=== PATIENT | male | born 1940 | race Caucasian/White ===

== ENCOUNTER 2016-11-29 16:37 | Emergency (ER) | payer BC, MEDICARE, OTHER ==
[2016-11-29 16:54] VITALS: TEMP 97.9
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
[2016-11-29 18:02] VITALS: BP 142/78; PULSE 78; RESP 16
== END 2016-11-29 18:10 | disposition home or self-care (01) ==
LOC: EC 16:37
DX: S01.81XA Laceration without foreign body of other part of head, initial encounter (principal); Z79.82 Long term (current) use of aspirin; Z79.899 Other long term (current) drug therapy; V43.52XA Car driver injured in collision with other type car in traffic accident, initial encounter; Y92.410 Unspecified street and highway as the place of occurrence of the external cause
CPT/HCPCS: 70450; 72125; 72170; 99284

== ENCOUNTER 2017-01-09 11:23 | Day surgery (SDC) | payer MEDICARE, BC ==
[2017-01-07 15:26] VITALS: BMI 25.0
[~2017-01-09 11:23] MED LIST: HEPARIN SODIUM,PORCINE 5,000 UNIT/ML 1 ML VIAL SQ ONE; MIDAZOLAM 2 MG/2 ML VIAL IV PRN; ONDANSETRON 4 MG/2 ML VIAL IVP ONE; ceFAZolin 2 GM in SODIUM CHLORIDE 0.9% 100 ML IVPB ONE
[2017-01-09] MEDS: LACTATED RINGERS 1,000 ML IV SCH (12:11)
--- NOTE | 2017-01-09 13:01 | P.GSHP ---
History of Present Illness H&P Date: 01/09/17 Chief Complaint: Left inguinal hernia This is a 68-year-old male who presents today for laparoscopic robotic-assisted repair of left inguinal hernia. Past Medical History Past Medical History: CVA/TIA, Hyperlipidemia, Hypertension, Osteoarthritis (OA) Additional Past Medical History / Comment(s): Speech slurred from CVA. History of Any Multi-Drug Resistant Organisms: None Reported Past Surgical History: No Surgical Hx Reported Additional Past Surgical History / Comment(s): Colonoscopy Past Anesthesia/Blood Transfusion Reactions: No Reported Reaction Smoking Status: Never smoker - Past Family History Mother Family Medical History: Cancer, Hypertension Additional Family Medical History / Comment(s): Breast Cancer Medications and Allergies Home Medications Medication Instructions Recorded Confirmed Type Allopurinol [Zyloprim] 100 mg PO DAILY 11/29/16 01/09/17 History Aspirin [Adult Low Dose Aspirin EC] 81 mg PO DAILY 11/29/16 01/07/17 History Cholecalciferol [Vitamin D3] 1,000 unit PO DAILY 11/29/16 01/07/17 History Diclofenac Sodium [Voltaren] 75 mg PO DAILY 11/29/16 01/07/17 History Enalapril [Vasotec] 20 mg PO BID 11/29/16 01/09/17 History Ferrous Sulfate [Feosol] 325 mg PO DAILY 11/29/16 01/07/17 History Hydrochlorothiazide [Hydrodiuril] 50 mg PO DAILY 11/29/16 01/09/17 History Indomethacin 25 mg PO DAILY PRN 11/29/16 01/09/17 History Losartan Potassium [Cozaar] 50 mg PO BID 11/29/16 01/09/17 History Magnesium Oxide [Magox 400] 400 mg PO DAILY 11/29/16 01/07/17 History amLODIPine [Norvasc] 5 mg PO BID 11/29/16 01/09/17 History Allergies Allergy/AdvReac Type Severity Reaction Status Date / Time No Known Allergies Allergy Verified 01/09/17 12:03 Surgical - Exam Vital Signs Temp Pulse Resp BP Pulse Ox 98.9 F 86 16 134/90 98 01/09/17 11:53 01/09/17 11:53 01/09/17 11:53 01/09/17 11:53 01/09/17 11:53 - General well developed, no distress - Eyes PERRL - ENT normal pinna - Neck no masses - Respiratory normal expansion - Cardiovascular Rhythm: regular - Abdomen Reducible left inguinal hernia Abdomen: soft, non tender Assessment and Plan Plan: Left inguinal hernia. We'll perform laparoscopic robotic-assisted repair.
[2017-01-09] MEDS ORDERED: fentaNYL (PF) 50 MCG/ML 2 ML AMP ONE (13:32)
[2017-01-09] MEDS ORDERED: ROCURONIUM BROMIDE 10 MG/ML 10 ML VIAL IV ONE (13:32)
[2017-01-09] MEDS ORDERED: PHENYLEPHRINE-0.9% NACL SYG 1 MG/10 ML SYRINGE ONE (13:32)
[2017-01-09] MEDS ORDERED: PROPOFOL 10 MG/ML 20 ML VIAL IV ONE (13:32)
[2017-01-09] MEDS ORDERED: MIDAZOLAM 2 MG/2 ML VIAL ONE (13:32)
[2017-01-09] MEDS ORDERED: LIDOCAINE 1% INJ 10MG/ML (20 ML MDV) ONE (13:32)
[2017-01-09] MEDS ORDERED: SUCCINYLCHOLINE CHLORIDE 100 MG/5 ML SYR IV ONE (13:32)
[2017-01-09] MEDS ORDERED: GLYCOPYRROLATE 0.2 MG/ML 2 ML VIAL ONE (13:32)
[2017-01-09] MEDS ORDERED: NEOSTIGMINE 1 MG/ML 10 ML VIAL ONE (13:32)
[2017-01-09] MEDS ORDERED: KETOROLAC 30 MG/ML 1 ML VIAL ONE (13:32)
[2017-01-09] MEDS ORDERED: LIDOCAINE 1%-EPI 1:100,000 20 ML VIAL SQ ONE (14:05)
--- NOTE | 2017-01-09 14:36 | P.OP ---
Date of Procedure: 01/09/17 Preoperative Diagnosis: Left and inguinal hernia Postoperative Diagnosis: Bilateral inguinal hernia Procedure(s) Performed: Laparoscopic robotic-assisted repair of bilateral inguinal hernia Implants: Anesthesia: KYLEA Surgeon: Erwin Watson Estimated Blood Loss (ml): 5 Pathology: none sent Condition: stable Disposition: PACU Indications for Procedure: Operative Findings: Description of Procedure: The patient's placed on the operating table in the supine position. The patient received general anesthesia. The patient's abdomen was prepped and draped in usual sterile fashion. The skin was anesthetized 1% local Xylocaine at the incision sites. Using an 11 blade a skin incision was made at the umbilicus. The fascia was grasped with a Cashion and then the peritoneal cavity was entered with the Veress needle. Position of the Veress needle was confirmed with a positive drop test. After adequate insufflation a 5 mm trocar was placed into the peritoneal cavity. The Laparoscope was placed the peritoneal cavity. And a robotic 8 mm trocar was placed in the right lateral position and then another 8 mm robotic trochars placed in the left lateral position. The original 5 mm trocar was exchanged for a 12 mm trocar. The patient was placed in reverse Trendelenburg and then the patient was docked to the robot. Next the peritoneum over top of the left hernia was incised and then using blunt and sharp dissection and electrocautery the hernia sac was dissected free from the floor of the inguinal canal. The hernia sac was completely reduced into the peritoneal cavity. And then using the Pro grinder set up operator gear tool mesh the hernia was repaired. The peritoneum was then sutured with 20V lock suture. Next the right inguinal hernia was repaired in identical fashion The patient was then undocked the robot. The needle was withdrawn from the peritoneal cavity. The umbilical trocar site was closed with 0 Ethibond suture. The skin was closed interrupted 3-0 Monocryl suture. Dermabond dressing was applied. Patient was sent to recovery in stable condition.
[2017-01-09] MEDS ORDERED: LACTATED RINGERS 1,000 ML IV ONE (15:00)
[2017-01-09 15:04] VITALS: TEMP 97.4
[2017-01-09] MEDS: HYDROmorphone 1 MG/ML 1 ML SYRINGE IVP PRN ×2 (15:17→15:23)
[2017-01-09 15:46] VITALS: RESP 16
[2017-01-09] MEDS ORDERED: HYDROcodone/APAP 7.5-325MG 1 EACH TAB PO ONE (16:04)
[2017-01-09 16:11] VITALS: PULSE 70
[2017-01-09 16:30] VITALS: BP 114/55
== END 2017-01-09 17:34 | disposition home or self-care (01) ==
LOC: OR 11:23
PROVIDERS: ATTEND Surgery
DX: K40.20 Bilateral inguinal hernia, without obstruction or gangrene, not specified as recurrent (principal); E78.5 Hyperlipidemia, unspecified; I10 Essential (primary) hypertension; M19.90 Unspecified osteoarthritis, unspecified site; M10.9 Gout, unspecified; Z86.73 Personal history of transient ischemic attack (TIA), and cerebral infarction without residual deficits; Z79.82 Long term (current) use of aspirin; Z79.899 Other long term (current) drug therapy
CPT/HCPCS: 49650; C1781; J1644; J0690; J2405; J1170

== ENCOUNTER 2020-09-25 17:03 | Emergency (ER) | payer BC, MEDICARE ==
--- NOTE | 2020-09-25 18:12 | ED ---
General Adult HPI - General Chief complaint: Recheck/Abnormal Lab/Rx Stated complaint: COVID EXPOSURE Time Seen by Provider: 09/25/20 18:00 Source: patient Mode of arrival: wheelchair Limitations: no limitations - History of Present Illness Initial comments: Dictation was produced using Clone dictation software. please excuse any grammatical, word or spelling errors. This patient was cared for during a federal and state declared state of emergency secondary to Covid 19 Chief Complaint: 80-year-old male presents to the emergency department for covid 19 testing History of Present Illness: Patient is a 80-year-old male past medical history of stroke dyslipidemia hypertension. Patient states that a couple days ago he was exposed to family members that tested positive for Covid 19. Patient has any symptoms. He was urged to come here by his son who is also a physician. Son was spoken to over the phone. His name is Titi. He wants his parents to receive monoclonal antibodies if they meet criteria. The ROS documented in this emergency department record has been reviewed and confirmed by me. Those systems with pertinent positive or negative responses have been documented in the HPI. All other systems are other negative and/or noncontributory. PHYSICAL EXAM: General Impression: Alert and oriented x3, not in acute distress HEENT: Normocephalic atraumatic, extra-ocular movements intact, pupils equal and reactive to light bilaterally, mucous membranes moist. Cardiovascular: Heart regular rate and rhythm Chest: Able to complete full sentences, no retractions, no tachypnea Abdomen: abdomen soft, non-tender, non-distended, no organomegaly Musculoskeletal: Pulses present and equal in all extremities, no peripheral edema Motor: no focal deficits noted Neurological: CN II-XII grossly intact, no focal motor or sensory deficits noted Skin: Intact with no visualized rashes Psych: Normal affect and mood ED course: 80-year-old male with multiple comorbidities presents to emergency department for chief complaint of Covid 19 testing. Patient denies any symptoms or signs at this time. Son over the phone reports that patient has URI symptoms. Vital signs upon arrival are within acceptable limits. Chest x-ray shows infiltrates. covid 19 test is positive. Patient is not hypoxic. he meets criteria for monoclonal antibody infusion. Patient tolerated infusion he was observed with no issues for 1 hour after completion of infusion. Patient be discharged. Return parameters discussed. - Related Data Home Medications Medication Instructions Recorded Confirmed Allopurinol [Zyloprim] 100 mg PO DAILY 11/29/16 01/09/17 Aspirin [Adult Low Dose Aspirin EC] 81 mg PO DAILY 11/29/16 01/07/17 Cholecalciferol [Vitamin D3] 1,000 unit PO DAILY 11/29/16 01/07/17 Diclofenac Sodium [Voltaren] 75 mg PO DAILY 11/29/16 01/07/17 Enalapril [Vasotec] 20 mg PO BID 11/29/16 01/09/17 Ferrous Sulfate [Feosol] 325 mg PO DAILY 11/29/16 01/07/17 Indomethacin 25 mg PO DAILY PRN 11/29/16 01/09/17 Losartan Potassium [Cozaar] 50 mg PO BID 11/29/16 01/09/17 Magnesium Oxide [Magox 400] 400 mg PO DAILY 11/29/16 01/07/17 amLODIPine [Norvasc] 5 mg PO BID 11/29/16 01/09/17 hydroCHLOROthiazide [Hydrodiuril] 50 mg PO DAILY 11/29/16 01/09/17 Previous Rx's Medication Instructions Recorded Docusate [Colace] 100 mg PO BID #20 capsule 01/09/17 HYDROcodone/APAP 7.5-325MG [[place] 1 each PO Q4H PRN #60 tab 01/09/17 7.5] Allergies Allergy/AdvReac Type Severity Reaction Status Date / Time No Known Allergies Allergy Verified 09/25/20 17:25 Review of Systems ROS Statement: Those systems with pertinent positive or pertinent negative responses have been documented in the HPI. ROS Other: All systems not noted in ROS Statement are negative. Past Medical History Past Medical History: CVA/TIA, Hyperlipidemia, Hypertension, Osteoarthritis (OA) Additional Past Medical History / Comment(s): Speech slurred from CVA. History of Any Multi-Drug Resistant Organisms: None Reported Past Surgical History: No Surgical Hx Reported Additional Past Surgical History / Comment(s): Colonoscopy Past Anesthesia/Blood Transfusion Reactions: No Reported Reaction Past Psychological History: No Psychological Hx Reported Past Alcohol Use History: Occasional Past Drug Use History: None Reported - Past Family History Mother Family Medical History: Cancer, Hypertension Additional Family Medical History / Comment(s): Breast Cancer General Exam Limitations: no limitations Course Vital Signs 09/25/20 09/25/20 09/25/20 17:23 18:26 20:38 Temperature 98.0 F 98.3 F Pulse Rate 66 64 Respiratory 18 16 16 Rate Blood Pressure 152/81 117/75 O2 Sat by Pulse 99 97 Oximetry 09/25/20 21:49 Temperature Pulse Rate 71 Respiratory 16 Rate Blood Pressure 127/66 O2 Sat by Pulse 98 Oximetry Medical Decision Making - Lab Data Lab Results 09/25/20 Range/Units 18:08 Coronavirus (PCR) Detected A (Not Detectd) Disposition Clinical Impression: COVID-19 Disposition: HOME SELF-CARE Condition: Good Instructions (If sedation given, give patient instructions): Viral Pneumonia (ED) Additional Instructions: Today you were evaluated for symptoms consistent with upper respiratory infection. Today you tested positive for Covid 19. Your are stable for discharge, however it is instructed to to seek immediate medical attention especially if you develop worsening symptoms especially respiratory distress. If possible, try to obtain a pulse oximeter and monitor your oxygen at home. In the meantime please remain in quarantine for 14 days. For any other questions please contact Yoly for here in emergency department or [facility] at [phone] Is patient prescribed a controlled substance at d/c from ED?: No Referrals: David Ortega MD [Primary Care Provider] - 1-2 days Time of Disposition: 21:55
--- NOTE | 2020-09-25 18:18 | XR ---
EXAMINATION TYPE: XR chest 2V DATE OF EXAM: 09/25/2020 COMPARISON: NONE HISTORY: Cough. TECHNIQUE: Frontal and lateral views of the chest are obtained. FINDINGS: There is no focal air space opacity, pleural effusion, or pneumothorax seen. The cardiac silhouette size is within normal limits. The osseous structures are intact. IMPRESSION: No acute cardiopulmonary process.
[2020-09-25 18:28] VITALS: RESP 16
[2020-09-25] MEDS ORDERED: BAMLANIVIMAB 700 MG in SODIUM CHLORIDE 0.9% 50 ML IVPB ONE (20:15)
[2020-09-25 20:40] VITALS: TEMP 98.3
[2020-09-25 21:51] VITALS: BP 127/66; PULSE 71
== END 2020-09-25 22:00 | disposition home or self-care (01) ==
LOC: EC 17:03
DX: U07.1 COVID-19 (principal); E78.5 Hyperlipidemia, unspecified; I10 Essential (primary) hypertension; M19.90 Unspecified osteoarthritis, unspecified site; Z86.73 Personal history of transient ischemic attack (TIA), and cerebral infarction without residual deficits
CPT/HCPCS: 87635; 71046; 99283; Q0239

== ENCOUNTER → 2022-09-26 | Outpatient (CLI) | payer MEDICARE ==
[2022-09-26 11:55] VITALS: BP 119/75; PULSE 53; RESP 18; TEMP 98.3
== END ==
LOC: PNWHC3 09:58
PROVIDERS: ATTEND Specialist
DX: M79.2 Neuralgia and neuritis, unspecified (principal); G06.2 Extradural and subdural abscess, unspecified
CPT/HCPCS: 99211

== ENCOUNTER 2022-10-23 09:12 | Day surgery (SDC) | payer MEDICARE ==
[2022-10-17 15:58] VITALS: BMI 25.8
[~2022-10-23 09:12] MED LIST changes: -HEPARIN SODIUM,PORCINE 5,000 UNIT/ML 1 ML VIAL SQ ONE; +LACTATED RINGERS 1,000 ML IV SCH; +LIDOCAINE 1% (10MG/ML) FOR IV START INTRADERMA PRN; -MIDAZOLAM 2 MG/2 ML VIAL IV PRN; -ONDANSETRON 4 MG/2 ML VIAL IVP ONE; -ceFAZolin 2 GM in SODIUM CHLORIDE 0.9% 100 ML IVPB ONE
[2022-10-23 09:43] VITALS: RESP 16; TEMP 97.3
[2022-10-23] MEDS ORDERED: methylPREDNISolone ACETATE 40 MG/ML 1 ML VIAL ONE (09:49)
[2022-10-23] MEDS ORDERED: MIDAZOLAM 2 MG/2 ML VIAL ONE (09:49)
[2022-10-23] MEDS ORDERED: IOPAMIDOL M200 10 ML VIAL ONE (09:49)
[2022-10-23] MEDS ORDERED: fentaNYL (PF) 50 MCG/ML 2 ML AMP ONE (09:49)
--- NOTE | 2022-10-23 10:02 | P.PCN ---
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 3-lumbar spinal stenosis POSTOPERATIVE DIAGNOSIS: 1-lumbar degenerative disc disease. 2-lumbar spondylosis with facet arthropathy without myelopathy. 3-lumbar spinal stenosis. PROCEDURE 1. Lumbar epidural steroid injection under fluoroscopic guidance at the L5-S1 level. (Fluoroscopy imaging was available in radiology department) 2. Lumbar epidurogram. ANESTHESIA: moderate sedation with intravenous Versed 1 mg ,and fentanyle 50 Mcg Sedation start time : 953 Sedation end time : 1000 EBL: Minimal PROCEDURE INDICATION: The patient with low back pain and radiculitis symptoms unresponsive to conservative treatment. Fluoroscopy was used to optimize visualization of the needle placement and to maximize safety. PROCEDURE DESCRIPTION / TECHNIQUE: The patient was seen and identified in the preoperative area. Risks, benefits, complications including but not limited to infections ,bleeding ,allergic reaction to the medications ,nerve damage and not complete pain releife , and alternatives were discussed with the patient. The patient agreed to proceed with the procedure and signed the consent. IV was started, and vital signs were stable. Patient was taken to the OR and time out was completed. The patient was placed in the prone position on procedure table and a pillow was placed under the abdomen to reduce lumbar lordosis. The lumbosacral area was prepped and draped in the usual sterile fashion.ere closely monitored during the procedure. C onscious sedation was used during the procedure to decrease patients anxiety. Vital signs was monitered during the entire procedure. Using anterior-posterior fluoroscopy, the L5-S1 interlaminar space was identified and the skin over this site was marked and then infiltrated with 1% lidocaine subcutaneously. Subsequently, a 20-gauge Tuohy epidural needle was inserted and advanced toward the epidural space using the ``Loss of resistance technique and guided by AP and lateral fluoroscopy. The correct needle position in the epidural space was verified with the injection of 2 mL of the water solu ble contrast dye Isovue 200 contrast and observing an excellent epidurogram with the epidural spread of the dye, after negative aspiration for blood and CSF and in the absence of paresthesias. Again after negative aspiration, a 6 ml mixture containing 40 mg of Depo-medrol ( Preservetive Free ), and 2 ml of preservative free Normal Saline, and 2 ml of preservative free lidocaine 1% solution was injected and a washout of epidurogram was seen. Needle was withdrawn intact, skin was cleansed, and bandages were applied. COMPLICATIONS: None DISPOSITION / PLANS: The patient was placed in a supine position and transferred to the recovery area in a stable condition for observation. There was no evidence of lower extremity motor or sensory deficit after the procedure. Patient was discharged from the recovery room after meeting discharge criteria. Home discharge instructions were given to the patient by the staff. The patient was reexamined prior to discharge. The patient will schedule a follow up in the clinic in 2-4 weeks.
[2022-10-23] MEDS ORDERED: IV FLUID CONTINUATION 1,000 ML IV ONE (10:05)
[2022-10-23 10:20] VITALS: BP 139/79; PULSE 81
[2022-10-23] MEDS ORDERED: IBUPROFEN 600 MG TAB PO ONE (10:35)
--- NOTE | 2022-10-23 11:33 | FL ---
EXAMINATION TYPE: FL guided pain mgmt statistic DATE OF EXAM: 10/23/2022 FLUOROSCOPY Fluoroscopy time of 2 seconds was used during lumbar epidural steroid injection. 1 image/s document/ s the procedure. 0.70197 total DAP.
== END 2022-10-23 10:51 | disposition home or self-care (01) ==
LOC: ORPAIN 09:12
PROVIDERS: ATTEND Specialist
DX: M51.16 Intervertebral disc disorders with radiculopathy, lumbar region (principal); M47.26 Other spondylosis with radiculopathy, lumbar region; M48.061 Spinal stenosis, lumbar region without neurogenic claudication
CPT/HCPCS: 62323; J2250; J1030; J3010; Q9966

== ENCOUNTER 2022-10-30 10:13 | Observation (INO) | payer MEDICARE ==
--- NOTE | 2022-10-30 11:45 | ED ---
General Adult HPI - General Chief complaint: Abdominal Pain Stated complaint: Abd pain Time Seen by Provider: 10/30/22 11:45 Source: patient Mode of arrival: ambulatory Limitations: no limitations - History of Present Illness Initial comments: 82-year-old male presents to the emergency department with just not feeling right for the last month. He is complaining of accompanying symptoms of nausea and vomiting. He denies any abdominal pain. He reports that he has had worsening low back pain for which he has received injections for. His last injection was approximately 1 month ago. He denies any recent known sick contacts. He is Covid and influenza vaccinated. He denies any fevers, chills, chest pain, shortness of breath, abdominal pain, flank pain, dysuria, hematuria. - Related Data Home Medications Medication Instructions Recorded Confirmed Aspirin [Adult Low Dose Aspirin EC] 81 mg PO DAILY 11/29/16 10/30/22 Magnesium Oxide [Magox 400] 400 mg PO DAILY 11/29/16 10/30/22 allopurinoL [Zyloprim] 100 mg PO DAILY 11/29/16 10/30/22 Finasteride [Proscar] 5 mg PO DAILY 10/17/22 10/30/22 Furosemide [Lasix] 20 mg PO DAILY 10/17/22 10/30/22 Ibuprofen [Advil] 200 - 400 mg PO Q6HR PRN 10/17/22 10/30/22 Levothyroxine Sodium [Synthroid] 75 mcg PO DAILY 10/17/22 10/30/22 Lovastatin [Mevacor] 20 mg PO DAILY 10/17/22 10/30/22 hydrALAZINE HCL [Apresoline] 50 mg PO BID 10/17/22 10/30/22 tiZANidine HCL [Zanaflex] 2 mg PO AC-BID PRN 10/17/22 10/30/22 Losartan Potassium 100 mg PO BID 10/30/22 10/30/22 Ondansetron [Zofran] 4 mg PO QID 10/30/22 10/30/22 Scopolamine [Scopolamine 1 MG/72 1 patch TRANSDERM Q72H 10/30/22 10/30/22 HR patch] amLODIPine [Norvasc] 10 mg PO DAILY 10/30/22 10/30/22 Allergies Allergy/AdvReac Type Severity Reaction Status Date / Time No Known Allergies Allergy Verified 10/30/22 16:41 Review of Systems ROS Statement: Those systems with pertinent positive or pertinent negative responses have been documented in the HPI. ROS Other: All systems not noted in ROS Statement are negative. Past Medical History Past Medical History: CVA/TIA, Hyperlipidemia, Hypertension, Osteoarthritis (OA) Additional Past Medical History / Comment(s): chronic pain lower back,CVA yrs ago History of Any Multi-Drug Resistant Organisms: None Reported Past Surgical History: Hernia Repair Additional Past Surgical History / Comment(s): Colonoscopy Past Anesthesia/Blood Transfusion Reactions: No Reported Reaction Past Psychological History: No Psychological Hx Reported Smoking Status: Never smoker Past Alcohol Use History: None Reported Past Drug Use History: None Reported - Past Family History Mother Family Medical History: Cancer, Hypertension Additional Family Medical History / Comment(s): Breast Cancer General Exam - General Exam Comments Initial Comments: Visual Physical Exam Vital signs reviewed General: Well-appearing, nontoxic, no acute distress. Head: Normocephalic, atraumatic Eyes: PERRLA, EOMI ENT: Airway patent Chest: Nonlabored breathing Skin: No visual rash, normal skin tone Neuro: Alert and oriented 3 Musculoskeletal: No gross abnormalities General: Alert, in no acute distress Head: atraumatic normocephalic. Eyes PERRL, EOMI intact, mucous membranes moist Respiratory: Lungs clear to auscultation bilaterally Cardiovascular: Heart rate regular rate and rhythm Abdominal: Soft without guarding or rebound Extremities: Normal inspection with full range of motion and normal capillary refill Neuroogic: alert and oriented 3, CN II-XII intact, able to ambulate with steady gait Skin: warm dry and intact with normal color Limitations: no limitations Course Vital Signs 10/30/22 10/30/22 10/30/22 10:41 14:34 17:12 Temperature 98.3 F 97.9 F 97.9 F Pulse Rate 71 76 67 Respiratory 22 16 16 Rate Blood Pressure 119/76 142/75 138/74 O2 Sat by Pulse 100 96 97 Oximetry 10/30/22 18:48 Temperature 98 F Pulse Rate 71 Respiratory 16 Rate Blood Pressure 137/84 O2 Sat by Pulse 98 Oximetry - Reevaluation(s) Reevaluation #2: 10/30/22 16:09 patient reevaluated. Patient still unable to tolerate by mouth challenge. Patient is agreeable with the plan for admission. Dr. Ortega paged. Reevaluation #3: 10/30/22 17:[address] Ortega who agrees and accepts the patient for admission Medical Decision Making - Medical Decision Making Was pt. sent in by a medical professional or institution ([facility], HOSPITAL INTERN, urgent care, hospital, or [facility]...) When possible be specific @ -[No] Did you speak to anyone other than the patient for history (EMS, parent, family, police, friend...)? What history was obtained from this source @ -[No] Did you review nursing and triage notes (agree or disagree)? Why? @ -[I reviewed and agree with nursing and triage notes] Were old charts reviewed (outside hosp., previous admission, EMS record, old EKG, old radiological studies, urgent care reports/EKG's, [facility] records)? Report findings @ -[No old charts were reviewed] Differential Diagnosis (chest pain, altered mental status, abdominal pain women, abdominal pain men, vaginal bleeding, weakness, fever, dyspnea, syncope, headache, dizziness, GI bleed, back pain, seizure, CVA, palpatations, mental health, musculoskeletal)? @ -[not applicable] EKG interpreted by me (3pts min.). @ -[As above] X-rays interpreted by me (1pt min.). @ -[None done] CT interpreted by me (1pt min.). @ -[None done] U/S interpreted by me (1pt. min.). @ -[None done] What testing was considered but not performed or refused? (CT, X-rays, U/S, labs)? Why? @ -[None] What meds were considered but not given or refused? Why? @ -[None] Did you discuss the management of the patient with other professionals (professionals i.e. , [facility], HOSPITAL INTERN, lab, RT, psych nurse, secondary social studies teacher, dry cleaning teacher, teacher, boating safety officer, bilingual case manager)? Give summary @ -[No] Was smoking cessation discussed for >3mins.? @ -[No] Was critical care preformed (if so, how long)? @ -[No] Were there social determinants of health that impacted care today? How? (Homelessness, low income, unemployed, alcoholism, drug addiction, transportation, low edu. Level, literacy, decrease access to med. care, fpc, rehab)? @ -[No] Was there de-escalation of care discussed even if they declined (Discuss DNR or withdrawal of care, Hospice)? DNR status @ -[No] What co-morbidities impacted this encounter? (DM, HTN, Smoking, COPD, CAD, Cancer, CVA, ARF, Chemo, Hep., AIDS, mental health diagnosis, sleep apnea, morbid obesity)? @ -[None] Was patient admitted / discharged? Hospital course, mention meds given and route, prescriptions, significant lab abnormalities, going to OR and other pertinent info. @ -Admission. This is a 82 year-old male who presents the emergency department with nausea and vomiting. Patient had a thorough history and physical exam performed. Physical exam is essentially unremarkable heart rate regular rate and rhythm, lungs clear to auscultation bilaterally abdomen is soft and nontender. Patient able to ambukate with a steady gait. Patient lab work and imaging performed which is essentially unremarkable. Patient was given Toradol, zofran, compazine, 1L IV with symptomatic relief. Patient had a by mouth challenge for which she was unable to tolerate appleauce. Case discussed with Dr. Scott who agrees and accepts the patient for observation. I discussed the results in detail with the patient verbalized understanding and all questions were addressed Case discussed with Dr. Poe, [facility] who agrees with plan of care Undiagnosed new problem with uncertain prognosis? @ -[No] Drug Therapy requiring intensive monitoring for toxicity (Heparin, Nitro, Insulin, Cardizem)? @ -[No] Were any procedures done? @ -[No] Diagnosis/symptom? @ -nausea and vomiting - DEVIN Acute, or Chronic, or Acute on Chronic? @ -acute Uncomplicated (without systemic symptoms) or Complicated (systemic symptoms)? @ -[default] Side effects of treatment? @ -[No] Exacerbation, Progression, or Severe Exacerbation? @ -[No] Poses a threat to life or bodily function? How? (Chest pain, [place], [place], pneumonia, PE, COPD, DKA, ARF, appy, cholecystitis, CVA, Diverticulitis, Homicidal, Suicidal, threat to staff... and all critical care pts) @ -moderate likelihood - Lab Data Result diagrams: 10/30/22 12:03 10/30/22 12:03 Lab Results 10/30/22 10/30/22 10/30/22 Range/Units 12:03 12:03 12:03 WBC 11.9 H (3.8-10.6) k/uL RBC 5.47 (4.30-5.90) m/uL Hgb 15.9 (13.0-17.5) gm/dL Hct 47.8 (39.0-53.0) % MCV 87.5 (80.0-100.0) fL MCH 29.0 (25.0-35.0) pg MCHC 33.2 (31.0-37.0) g/dL RDW 13.6 (11.5-15.5) % Plt Count 292 (150-450) k/uL MPV 7.9 Neutrophils % 80 % Lymphocytes % 13 % Monocytes % 5 % Eosinophils % 0 % Basophils % 0 % Neutrophils # 9.5 H (1.3-7.7) k/uL Lymphocytes # 1.6 (1.0-4.8) k/uL Monocytes # 0.6 (0-1.0) k/uL Eosinophils # 0.1 (0-0.7) k/uL Basophils # 0.0 (0-0.2) k/uL PT 10.6 (9.0-12.0) sec INR 1.0 (<1.2) APTT 23.3 (22.0-30.0) sec Sodium 138 (137-145) mmol/L Potassium 4.4 (3.5-5.1) mmol/L Chloride 100 (98-107) mmol/L Carbon Dioxide 25 (22-30) mmol/L Anion Gap 13 mmol/L BUN 29 H (9-20) mg/dL Creatinine 1.76 H (0.66-1.25) mg/dL Est GFR (CKD-EPI)AfAm 40 (>60 ml/min/1.73 sqM) Est GFR (CKD-EPI)NonAf 35 (>60 ml/min/1.73 sqM) Glucose 94 (74-99) mg/dL Calcium 9.9 (8.4-10.2) mg/dL Total Bilirubin 0.8 (0.2-1.3) mg/dL AST 21 (17-59) U/L ALT 22 (4-49) U/L Alkaline Phosphatase 119 (38-126) U/L Troponin I (0.000-0.034) ng/mL Total Protein 7.4 (6.3-8.2) g/dL Albumin 4.5 (3.5-5.0) g/dL Urine Color Urine Appearance (Clear) Urine pH (5.0-8.0) Ur Specific Standish (1.001-1.035) Urine Protein (Negative) Urine Glucose (UA) (Negative) Urine Ketones (Negative) Urine Blood (Negative) Urine Nitrite (Negative) Urine Bilirubin (Negative) Urine Urobilinogen (<2.0) mg/dL Ur Leukocyte Esterase (Negative) Influenza Type A (PCR) (Not Detectd) Influenza Type B (PCR) (Not Detectd) RSV (PCR) (Not Detectd) SARS-CoV-2 (PCR) (Not Detectd) 10/30/22 10/30/22 10/30/22 Range/Units 12:03 12:03 15:55 WBC (3.8-10.6) k/uL RBC (4.30-5.90) m/uL Hgb (13.0-17.5) gm/dL Hct (39.0-53.0) % MCV (80.0-100.0) fL MCH (25.0-35.0) pg MCHC (31.0-37.0) g/dL RDW (11.5-15.5) % Plt Count (150-450) k/uL MPV Neutrophils % % Lymphocytes % % Monocytes % % Eosinophils % % Basophils % % Neutrophils # (1.3-7.7) k/uL Lymphocytes # (1.0-4.8) k/uL Monocytes # (0-1.0) k/uL Eosinophils # (0-0.7) k/uL Basophils # (0-0.2) k/uL PT (9.0-12.0) sec INR (<1.2) APTT (22.0-30.0) sec Sodium (137-145) mmol/L Potassium (3.5-5.1) mmol/L Chloride (98-107) mmol/L Carbon Dioxide (22-30) mmol/L Anion Gap mmol/L BUN (9-20) mg/dL Creatinine (0.66-1.25) mg/dL Est GFR (CKD-EPI)AfAm (>60 ml/min/1.73 sqM) Est GFR (CKD-EPI)NonAf (>60 ml/min/1.73 sqM) Glucose (74-99) mg/dL Calcium (8.4-10.2) mg/dL Total Bilirubin (0.2-1.3) mg/dL AST (17-59) U/L ALT (4-49) U/L Alkaline Phosphatase (38-126) U/L Troponin I <0.012 (0.000-0.034) ng/mL Total Protein (6.3-8.2) g/dL Albumin (3.5-5.0) g/dL Urine Color Yellow Urine Appearance Clear (Clear) Urine pH 5.5 (5.0-8.0) Ur Specific Standish 1.016 (1.001-1.035) Urine Protein Negative (Negative) Urine Glucose (UA) Negative (Negative) Urine Ketones 1+ H (Negative) Urine Blood Negative (Negative) Urine Nitrite Negative (Negative) Urine Bilirubin Negative (Negative) Urine Urobilinogen <2.0 (<2.0) mg/dL Ur Leukocyte Esterase Negative (Negative) Influenza Type A (PCR) Not Detected (Not Detectd) Influenza Type B (PCR) Not Detected (Not Detectd) RSV (PCR) Not Detected (Not Detectd) SARS-CoV-2 (PCR) Not Detected (Not Detectd) Disposition Clinical Impression: Intractable nausea and vomiting, DEVIN (acute kidney injury) Disposition: ADMITTED IP TO THIS HOSP Condition: Fair Time of Disposition: 17:06
[2022-10-30] MEDS ORDERED: ONDANSETRON 4 MG/2 ML VIAL IVP STA (12:26)
[2022-10-30] MEDS ORDERED: SODIUM CHLORIDE 0.9% 500 ML 500 ML IV ONE ×2 (12:26→14:20)
[2022-10-30] MEDS ORDERED: KETOROLAC 15 MG/ML 1 ML VIAL IVP STA (12:26)
[2022-10-30 12:29] LABS: Albumin 4.5 g/dL (3.5-5.0); Calcium 9.9 mg/dL (8.4-10.2); Potassium 4.4 mmol/L (3.5-5.1); Total Bilirubin 0.8 mg/dL (0.2-1.3); Total Protein 7.4 g/dL (6.3-8.2)
[2022-10-30 12:35] LABS: Basophils % (A) 0 %; Eosinophils # (A) 0.1 k/uL (0-0.7); Eosinophils % (A) 0 %; HCT 47.8 % (39.0-53.0); HGB 15.9 gm/dL (13.0-17.5); Lymphocytes # (A) 1.6 k/uL (1.0-4.8); Lymphocytes % (A) 13 %; MCHC 33.2 g/dL (31.0-37.0); MCV 87.5 fL (80.0-100.0); Mean Platelet Volume 7.9; Monocytes # (A) 0.6 k/uL (0-1.0); Monocytes % (A) 5 %; Neutrophils # (A) 9.5 k/uL (1.3-7.7); Neutrophils % (A) 80 %; Platelet Count 292 k/uL (150-450); RBC 5.47 m/uL (4.30-5.90); RDW 13.6 % (11.5-15.5); WBC 11.9 k/uL (3.8-10.6)
[2022-10-30 12:49] LABS: Partial Thromboplastin Time 23.3 sec (22.0-30.0); Prothrombin Time 10.6 sec (9.0-12.0)
[2022-10-30] MEDS ORDERED: PROCHLORPERAZINE INJ 10 MG/2 ML VIAL IVP STA (13:28)
--- NOTE | 2022-10-30 13:36 | XR ---
EXAMINATION TYPE: XR chest 2V DATE OF EXAM: 10/30/2022 COMPARISON: 09/25/2020 HISTORY: 82-year-old male with cough TECHNIQUE: PA and lateral views FINDINGS: Heart normal size. Aorta and pulmonary vasculature within normal limits. Suspect a healed fracture de formity eighth posterolateral left rib. Underlying moderate to large hiatal hernia. IMPRESSION: Moderate to large hiatal hernia. No acute cardiopulmonary process. Suspect old healed fracture left p osterolateral eighth rib.
--- NOTE | 2022-10-30 13:47 | CT ---
EXAMINATION TYPE: CT abdomen pelvis wo con DATE OF EXAM: 10/30/2022 COMPARISON: None HISTORY: 82-year-old male severe back pain, Abdominal pain CT DLP: 490.7 mGycm. Automated exposure control for dose reduction was used. TECHNIQUE: Contiguous axial scanning of the abdomen and pelvis without IV contrast. Coronal and sagit keven reconstructions performed. FINDINGS: Heart normal size. Subpleural reticular and microcystic change at the lung bases. Some minimal associ ated bronchiolectasis is present as well. 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 Moderate to large hiatal hernia involving two thirds of the stomach in the lower chest. Ectatic descending thoracic aorta at 2.6 cm. Noncontrast assessment of the liver, gallbladder, kidneys, spleen, and pancreas show no gross abnorma lity. Diffuse breathing motion artifact. No dilated small bowel, free fluid, or free air. No mesenteric or retroperitoneal lymphadenopathy. Normal appendix. There is mild stool burden. Mild diverticulosis along the junction of the descendin g and sigmoid colon. No pericolonic inflammatory change. Some prominent right common iliac chain lymph nodes measuring up to 8 mm are nonspecific, probably re active/post inflammatory. Mild circumferential bladder wall thickening. Prostate gland mildly enlarged at 4.2 cm wide. No abnor mal fluid collection in the pelvis or pelvic lymphadenopathy. A couple small pelvic phleboliths. Smal l right-sided scrotal hydrocele. Bones: Mild to moderate degenerative change of the hips. Mild degenerative change SI joints. Moderate degenerative disc disease mid to lower lumbar spine. Disc bulge and ligamentum flavum thickening cau ses possible severe spinal canal stenosis at L4-L5. IMPRESSION: 1. Degenerative changes mid to lower lumbar spine. Combination of ligamentum flavum thickening and d isc bulge at L4-L5 contribute to a severe focal spinal canal stenosis. 2. 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 3. Moderate to large hiatal hernia involving two thirds of the stomach in the lower chest. 4. Mild circumferential bladder wall thickening which may be chronic for the patient. Correlate to e xclude cystitis.
[2022-10-30] MEDS ORDERED: ONDANSETRON ODT 4 MG TAB PO STA (16:00)
[2022-10-30 16:12] LABS: Appearance,Urine Clear (Clear); Bilirubin,Urine Negative (Negative); Blood,Urine Negative (Negative); Color,Urine Yellow; Glucose,Urine (UA) Negative (Negative); Ketones,Urine 1+ (Negative); Leukocyte Esterase,Urine Negative (Negative); Nitrite,Urine Negative (Negative); PH, Urine 5.5 (5.0-8.0); Protein,Urine Negative (Negative); Specific Gravity,Urine 1.016 (1.001-1.035); Urobilinogen,Urine <2.0 mg/dL (<2.0)
[2022-10-30] MEDS ORDERED: ONDANSETRON 4 MG/2 ML VIAL IVP PRN (17:06)
[2022-10-30] MEDS ORDERED: IBUPROFEN 400 MG TAB PO PRN (17:06)
[2022-10-30] MEDS ORDERED: NALOXONE 0.4 MG/ML 1 ML VIAL IV PRN (17:06)
[2022-10-30] MEDS: ONDANSETRON 4 MG TAB PO SCH ×2 (18:10→22:24)
[2022-10-30] MEDS: SODIUM CHLORIDE 0.9% 1,000 ML IV SCH (18:14)
[2022-10-30] MEDS: SCOPOLAMINE 1 MG/72 HR PATCH TRANSDERM SCH (18:33)
[2022-10-30] MEDS: LOSARTAN 50 MG TAB PO SCH (22:23)
[2022-10-30] MEDS: hydrALAZINE HCL 50 MG TAB PO SCH (22:43)
--- NOTE | 2022-10-31 01:59 | HP ---
HISTORY AND PHYSICAL HISTORY OF PRESENT ILLNESS: This is an 82-year-old white male who came in with nausea, vomiting. Any food or oral intake, he starts vomiting. Worsening low back pain, which he has received an epidural, which has greatly improved him, 60% to 70% since his epidural shot and due to progressive nausea and vomiting, he came to the hospital. No fevers or chills. HOME MEDICATIONS: 1. Aspirin 81 mg daily. 2. Mag oxide 400 mg daily. 3. Zyloprim 100 mg daily. 4. Proscar 5 mg daily. 5. Lasix 20 mg daily. 6. Synthroid 75 mcg daily. 7. 20 mg daily. 8. Apresoline 50 mg b.i.d. 9. Zanaflex 2 mg a.c. b.i.d. 10.Losartan 100 mg b.i.d. 11. patch 1 mg to 72 hours. 12.Norvasc 10 mg daily. ALLERGIES: Negative. REVIEW OF SYSTEMS: A-14 point review of systems otherwise negative. PAST MEDICAL HISTORY: CVA, TIA, bereavement, hypertension, dyslipidemia, osteoarthritis. PAST SURGICAL HISTORY: Surgical repair of a hiatal hernia. PHYSICAL EXAMINATION: VITAL SIGNS: Temp 98.3, pulse 67 to 76, blood pressure is 119 to 140s over 60s to 80s, O2 97 to 100% on room air. CARDIOVASCULAR: S1, S2. LUNGS: Clear. GI: Soft. HEMATOLOGY: Negative Homans. PSYCH: Fair mood and affect. NEUROLOGIC: Alert and oriented x3. IMPRESSION: Dehydration, acute nausea and vomiting, EGD, possible cholecystectomy. Prognosis is guarded. Follow up in next 24 to 48 hours. Prognosis is guarded. Please see further orders. MMODL / IJN: [id number] /
[2022-10-31] MEDS: LEVOTHYROXINE 75 MCG TAB PO SCH (06:09)
[2022-10-31] MEDS: PANTOPRAZOLE 40 MG TABLET PO SCH ×2 (06:09→17:57)
[2022-10-31] MEDS: SODIUM CHLORIDE 0.9% 1,000 ML IV SCH ×2 (06:09→22:20)
--- NOTE | 2022-10-31 09:28 | NM ---
EXAMINATION TYPE: NM hepatobiliary w CCK DATE OF EXAM: 10/31/2022 COMPARISON: CT abdomen and pelvis from yesterday CLINICAL INDICATION: Male, 82 years old with history of ruq pain; diminished appetite and nausea TECHNIQUE: After the intravenous administration of 5.2 mCi Tc 99m Mebrofenin hepatobiliary scintigrap hy is performed. Immediate images post injection. FINDINGS: There is satisfactory initial accumulation of tracer by the liver. The gallbladder is visualized wit hin 50 minutes. The small bowel activity is noted within 20 minutes. At one hour CCK was administer ed, patient was injected with 1.36 mcg of Kinevac, and gallbladder ejection fraction is calculated at 85 %, not diminished from the normal range. Therefore there is no scintigraphic evidence of cystic or common bile duct obstruction to suggest acute cholecystitis or gallbladder hypokinesia. IMPRESSION: Ejection fraction is 85%, some considered this abnormal or a hyperkinetic response. Patie nt had symptoms of epigastric pain upon given IV CCK.
[2022-10-31] MEDS: amLODIPine 10 MG TAB PO SCH (09:33)
[2022-10-31] MEDS: hydrALAZINE HCL 50 MG TAB PO SCH ×2 (09:33→22:20)
[2022-10-31] MEDS: ASPIRIN 81 MG PO SCH (09:33)
[2022-10-31] MEDS: FINASTERIDE 5 MG TAB PO SCH (09:33)
[2022-10-31] MEDS: LOSARTAN 50 MG TAB PO SCH ×2 (09:33→22:20)
[2022-10-31] MEDS: allopurinoL 100 MG TAB PO SCH (09:33)
[2022-10-31] MEDS: ATORVASTATIN 10 MG TAB PO SCH (09:33)
[2022-10-31] MEDS: MAGNESIUM OXIDE 400 MG TAB PO SCH (09:33)
[2022-10-31 10:56] LABS: Basophils # (A) 0.06 X 10*3/uL (0.00-0.10); Basophils % (A) 0.8 %; Eosinophils # (A) 0.06 X 10*3/uL (0.04-0.35); Eosinophils % (A) 0.8 %; HCT 41.6 % (39.6-50.0); HGB 13.4 g/dL (13.0-17.0); Immature Grans, Automated 0.5 %; Lymphocytes # (A) 1.31 X 10*3/uL (0.90-5.00); Lymphocytes % (A) 17.6 %; MCH 28.6 pg (27.0-32.0); MCHC 32.2 g/dL (32.0-37.0); MCV 88.9 fL (80.0-97.0); Mean Platelet Volume 10.4 fL (9.5-12.2); Monocytes # (A) 0.47 X 10*3/uL (0.20-1.00); Monocytes % (A) 6.3 %; NRBC Per 100 WBC 0 /100 WBCS (0.0-0.0); Platelet Count 230 X 10*3/uL (140-440); RBC 4.68 X 10*6/uL (4.40-5.60); RDW 14.2 % (11.5-14.5); WBC 7.44 X 10*3/uL (4.50-10.00)
[2022-10-31 11:18] LABS: African American GFR (CKD) 48.8 (60.0-200.0); Albumin 3.5 g/dL (3.8-4.9); Albumin/Globulin Ratio 1.75 (1.60-3.17); Anion Gap 8.7 mmol/L (10.00-18.00); BUN/Creat Ratio 17.87 Ratio (12.00-20.00); Blood Urea Nitrogen 26.8 mg/dL (9.0-27.0); Carbon Dioxide 26.3 mmol/L (20.0-27.5); Non-African American GFR(CKD) 42.1 (60.0-200.0); Potassium 4.7 mmol/L (3.5-5.5); Total Bilirubin 0.3 mg/dL (0.30-1.20); Total Protein 5.5 g/dL (6.2-8.2)
--- NOTE | 2022-10-31 13:35 | P.GSCN ---
History of Present Illness Consult date: 10/31/22 History of present illness: CHIEF COMPLAINT: Nausea HISTORY OF PRESENT ILLNESS: This is a 82-year-old male with complaints of nausea after eating or drinking anything for the last 1 month. He denies abdominal pain. He occasionally gets heartburn. He also has been spitting up phlegm continuously. Patient had a computed tomography scan completed that did show moderate to large hiatal hernia involving two thirds of the stomach in the lower chest. Medicine service did order a HIDA scan which did show a hyperkinetic gallbladder with a EF of 85%. Patient denies any right upper quadrant pain after eating. Denies any fever chills or sweats. Surgical service consulted in regards to hiatal hernia and possible EGD. PAST MEDICAL HISTORY: CVA, hyperlipidemia, hypertension PAST SURGICAL HISTORY: See below MEDICATIONS: See below ALLERGIES: See below SOCIAL HISTORY: No illicit drug use. REVIEW OF SYSTEMS: CONSTITUTIONAL: Denies fever or chills. HEENT: Denies blurred vision, vision changes, or eye pain. Denies hemoptysis CARDIOVASCULAR: Denies chest pain or pressure. RESPIRATORY: No shortness of breath. GASTROINTESTINAL: See HPI for pertinent findings HEMATOLOGIC: Denies bleeding disorders. GENITOURINARY: Denies any blood in urine or increased urinary frequency. SKIN: Denies pruitis. Denies rash. PHYSICAL EXAM: VITAL SIGNS: Reviewed GENERAL: Well-developed in no acute distress. HEENT: No sclera icterus. Extraocular movements grossly intact. Moist buccal mucosa. Head is atraumatic, normocephalic. No nasal drainage. ABDOMEN: Soft. Nondistended. Nontender NEUROLOGIC: Alert and oriented. Cranial nerves II through XII grossly intact. LABORATORY DATA: WBC 11.9 down to 7.44 Hgb 13.4 platelets 230 Na 142 potassium is 4.7 creatinine 1.76 down to 1.5 LFTs normal lipase 213 Urinalysis negative for infection Influenza, RSV and Covid not detected IMAGING: Computed tomography scan degenerative changes mid to lower lumbar spine. Combination of ligamentum flavum thickening and disc bulge at L4 to L5 due to severe focal spinal canal stenosis. 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 Moderate to large hiatal hernia involving two thirds of the stomach the lower chest. Mild circumferential bladder wall thickening which may be chronic for the patient. ASSESSMENT: 1. Large hiatal hernia with two thirds of the stomach in the lower chest. Hiatal Hernia likely contributing to patient's symptoms 2. Dehydration 3. Hyperkinetic gallbladder PLAN: -Patient scheduled for EGD tomorrow with Dr. morrison -Clear liquid diet today -Nothing by mouth after midnight -Continue IV fluids -Continue supportive care Physician Chicken Sexer note has been reviewed by physician. Signing provider agrees with the documented findings, assessment, and plan of care. Past Medical History Past Medical History: CVA/TIA, Hyperlipidemia, Hypertension, Osteoarthritis (OA) Additional Past Medical History / Comment(s): chronic pain lower back,CVA yrs ago History of Any Multi-Drug Resistant Organisms: None Reported Past Surgical History: Hernia Repair Additional Past Surgical History / Comment(s): Colonoscopy Past Anesthesia/Blood Transfusion Reactions: No Reported Reaction Past Psychological History: No Psychological Hx Reported Smoking Status: Never smoker Past Alcohol Use History: None Reported Past Drug Use History: None Reported - Past Family History Mother Family Medical History: Cancer, Hypertension Additional Family Medical History / Comment(s): Breast Cancer Medications and Allergies Home Medications Medication Instructions Recorded Confirmed Type Aspirin [Adult Low Dose Aspirin EC] 81 mg PO DAILY 11/29/16 10/30/22 History Magnesium Oxide [Magox 400] 400 mg PO DAILY 11/29/16 10/30/22 History allopurinoL [Zyloprim] 100 mg PO DAILY 11/29/16 10/30/22 History Finasteride [Proscar] 5 mg PO DAILY 10/17/22 10/30/22 History Furosemide [Lasix] 20 mg PO DAILY 10/17/22 10/30/22 History Ibuprofen [Advil] 200 - 400 mg PO Q6HR PRN 10/17/22 10/30/22 History Levothyroxine Sodium [Synthroid] 75 mcg PO DAILY 10/17/22 10/30/22 History Lovastatin [Mevacor] 20 mg PO DAILY 10/17/22 10/30/22 History hydrALAZINE HCL [Apresoline] 50 mg PO BID 10/17/22 10/30/22 History tiZANidine HCL [Zanaflex] 2 mg PO AC-BID PRN 10/17/22 10/30/22 History Losartan Potassium 100 mg PO BID 10/30/22 10/30/22 History Ondansetron [Zofran] 4 mg PO QID 10/30/22 10/30/22 History Scopolamine [Scopolamine 1 MG/72 1 patch TRANSDERM Q72H 10/30/22 10/30/22 History HR patch] amLODIPine [Norvasc] 10 mg PO DAILY 10/30/22 10/30/22 History Allergies Allergy/AdvReac Type Severity Reaction Status Date / Time No Known Allergies Allergy Verified 10/30/22 16:41 Surgical - Exam Vital Signs Temp Pulse Resp BP Pulse Ox 98.3 F 71 22 119/76 100 10/30/22 10:41 10/30/22 10:41 10/30/22 10:41 10/30/22 10:41 10/30/22 10:41 Results - Labs 10/31/22 05:22 10/31/22 05:22 Abnormal Lab Results - Last 24 Hours (Table) 10/30/22 10/30/22 10/30/22 Range/Units 12:03 12:03 15:55 WBC 11.9 H (3.8-10.6) k/uL Neutrophils # 9.5 H (1.3-7.7) k/uL BUN 29 H (9-20) mg/dL Creatinine 1.76 H (0.66-1.25) mg/dL Urine Ketones 1+ H (Negative) Diabetes panel 10/30/22 Range/Units 12:03 Sodium 138 (137-145) mmol/L Potassium 4.4 (3.5-5.1) mmol/L Chloride 100 (98-107) mmol/L Carbon Dioxide 25 (22-30) mmol/L BUN 29 H (9-20) mg/dL Creatinine 1.76 H (0.66-1.25) mg/dL Glucose 94 (74-99) mg/dL Calcium 9.9 (8.4-10.2) mg/dL AST 21 (17-59) U/L ALT 22 (4-49) U/L Alkaline Phosphatase 119 (38-126) U/L Total Protein 7.4 (6.3-8.2) g/dL Albumin 4.5 (3.5-5.0) g/dL Calcium panel 10/30/22 Range/Units 12:03 Calcium 9.9 (8.4-10.2) mg/dL Albumin 4.5 (3.5-5.0) g/dL Pituitary panel 10/30/22 Range/Units 12:03 Sodium 138 (137-145) mmol/L Potassium 4.4 (3.5-5.1) mmol/L Chloride 100 (98-107) mmol/L Carbon Dioxide 25 (22-30) mmol/L BUN 29 H (9-20) mg/dL Creatinine 1.76 H (0.66-1.25) mg/dL Glucose 94 (74-99) mg/dL Calcium 9.9 (8.4-10.2) mg/dL Adrenal panel 10/30/22 Range/Units 12:03 Sodium 138 (137-145) mmol/L Potassium 4.4 (3.5-5.1) mmol/L Chloride 100 (98-107) mmol/L Carbon Dioxide 25 (22-30) mmol/L BUN 29 H (9-20) mg/dL Creatinine 1.76 H (0.66-1.25) mg/dL Glucose 94 (74-99) mg/dL Calcium 9.9 (8.4-10.2) mg/dL Total Bilirubin 0.8 (0.2-1.3) mg/dL AST 21 (17-59) U/L ALT 22 (4-49) U/L Alkaline Phosphatase 119 (38-126) U/L Total Protein 7.4 (6.3-8.2) g/dL Albumin 4.5 (3.5-5.0) g/dL
[2022-11-01] MEDS: LEVOTHYROXINE 75 MCG TAB PO SCH (06:57)
[2022-11-01] MEDS: PANTOPRAZOLE 40 MG TABLET PO SCH ×2 (06:57→17:11)
[2022-11-01] MEDS: hydrALAZINE HCL 50 MG TAB PO SCH ×2 (07:58→21:07)
[2022-11-01] MEDS: MAGNESIUM OXIDE 400 MG TAB PO SCH (08:00)
[2022-11-01] MEDS: allopurinoL 100 MG TAB PO SCH (08:00)
[2022-11-01] MEDS: LOSARTAN 50 MG TAB PO SCH ×2 (08:00→21:07)
[2022-11-01] MEDS: FINASTERIDE 5 MG TAB PO SCH (08:00)
[2022-11-01] MEDS: ASPIRIN 81 MG PO SCH (08:00)
[2022-11-01] MEDS: ATORVASTATIN 10 MG TAB PO SCH (08:00)
[2022-11-01] MEDS: amLODIPine 10 MG TAB PO SCH (08:00)
[2022-11-01 09:08] LABS: Basophils # (A) 0.04 X 10*3/uL (0.00-0.10); Basophils % (A) 0.5 %; Eosinophils # (A) 0.08 X 10*3/uL (0.04-0.35); HCT 41.6 % (39.6-50.0); HGB 13.2 g/dL (13.0-17.0); Immature Grans, Automated 0.5 %; Lymphocytes # (A) 1.24 X 10*3/uL (0.90-5.00); MCH 28.4 pg (27.0-32.0); MCHC 31.7 g/dL (32.0-37.0); MCV 89.5 fL (80.0-97.0); Mean Platelet Volume 10.3 fL (9.5-12.2); Monocytes % (A) 6.5 %; NRBC Per 100 WBC 0 /100 WBCS (0.0-0.0); Neutrophils # (A) 5.85 X 10*3/uL (1.80-7.70); Neutrophils % (A) 75.5 %; Platelet Count 230 X 10*3/uL (140-440); RBC 4.65 X 10*6/uL (4.40-5.60); RDW 14.3 % (11.5-14.5); WBC 7.75 X 10*3/uL (4.50-10.00)
[2022-11-01] MEDS ORDERED: PROPOFOL 10 MG/ML 20 ML VIAL IV ONE (09:49)
[2022-11-01] MEDS ORDERED: IV FLUID CONTINUATION 1,000 ML IV ONE (09:50)
--- NOTE | 2022-11-01 10:00 | P.OP ---
Date of Procedure: 11/01/22 Preoperative Diagnosis: Dysphagia Postoperative Diagnosis: Large paraesophageal hiatal hernia with approximately one third of stomach and chest. Procedure(s) Performed: EGD Anesthesia: MAC Surgeon: Erwin Watson Pathology: other (Antrum) Condition: stable Disposition: PACU Description of Procedure: The patient's placed on the endoscopy table in the lateral position. He received IV sedation. The gastroscope patient oropharynx passed in the esophagus and stomach. Scope was placed through the pylorus. The first and second portion of duodenum appeared normal. Scope was brought back the antrum this appeared inflamed. Scope was then brought back and the remainder stomach appeared normal. The scope was retroflexed the patient had a large paraesophageal hernia. The sigmoid colon. The stomach was in the intrathoracic position. The GE junction was at 36 cm. The distal esophagus appeared normal. Proximal esophagus. Scope withdrawn for patient.
[2022-11-01 10:07] LABS: Albumin 3.5 g/dL (3.8-4.9); Albumin/Globulin Ratio 1.84 (1.60-3.17); Anion Gap 8.3 mmol/L (10.00-18.00); BUN/Creat Ratio 10.92 Ratio (12.00-20.00); Blood Urea Nitrogen 13.1 mg/dL (9.0-27.0); Calcium 8.9 mg/dL (8.7-10.3); Carbon Dioxide 23.7 mmol/L (20.0-27.5); Globulin 1.9 g/dL (1.6-3.3); Non-African American GFR(CKD) 55.2 (60.0-200.0); Potassium 4.5 mmol/L (3.5-5.5); Total Bilirubin 0.3 mg/dL (0.30-1.20); Total Protein 5.4 g/dL (6.2-8.2)
[2022-11-01] MEDS: SODIUM CHLORIDE 0.9% 1,000 ML IV SCH ×2 (11:13→22:13)
[2022-11-02] MEDS: PANTOPRAZOLE 40 MG TABLET PO SCH ×2 (05:20→18:42)
[2022-11-02] MEDS: LEVOTHYROXINE 75 MCG TAB PO SCH (05:20)
[2022-11-02 06:28] LABS: HCT 43.7 % (39.0-53.0); HGB 13.8 gm/dL (13.0-17.5); MCH 28.8 pg (25.0-35.0); MCHC 31.6 g/dL (31.0-37.0); MCV 90.9 fL (80.0-100.0); Mean Platelet Volume 8.2; Platelet Count 207 k/uL (150-450); RDW 13.8 % (11.5-15.5); WBC 6.9 k/uL (3.8-10.6)
[2022-11-02 06:38] LABS: African American GFR (CKD) 60 (>60 ml/min/1.73 sqM); Anion Gap 8 mmol/L; Blood Urea Nitrogen 16 mg/dL (9-20); Calcium 8.8 mg/dL (8.4-10.2); Carbon Dioxide 26 mmol/L (22-30); Chloride 107 mmol/L (98-107); Glucose 85 mg/dL (74-99); Non-African American GFR(CKD) 52 (>60 ml/min/1.73 sqM); Potassium 4.2 mmol/L (3.5-5.1); Sodium 141 mmol/L (137-145)
[2022-11-02] MEDS: amLODIPine 10 MG TAB PO SCH (09:08)
[2022-11-02] MEDS: ASPIRIN 81 MG PO SCH (09:08)
[2022-11-02] MEDS: FINASTERIDE 5 MG TAB PO SCH (09:08)
[2022-11-02] MEDS: ATORVASTATIN 10 MG TAB PO SCH (09:08)
[2022-11-02] MEDS: MAGNESIUM OXIDE 400 MG TAB PO SCH (09:08)
[2022-11-02] MEDS: LOSARTAN 50 MG TAB PO SCH ×2 (09:08→20:08)
[2022-11-02] MEDS: hydrALAZINE HCL 50 MG TAB PO SCH ×2 (09:08→20:08)
[2022-11-02] MEDS: allopurinoL 100 MG TAB PO SCH (09:08)
[2022-11-02] MEDS ORDERED: HEPARIN SODIUM,PORCINE/PF 5,000 UNIT/0.5 ML SYRINGE SQ ONE (09:46)
[2022-11-02] MEDS ORDERED: LACTATED RINGERS 1,000 ML IV ONE (09:53)
[2022-11-02] MEDS ORDERED: DEXAMETHASONE SOD PHOSPHATE 4 MG/ML 1 ML VIAL IVP ONE (10:05)
[2022-11-02] MEDS ORDERED: ONDANSETRON 4 MG/2 ML VIAL IVP ONE (10:06)
[2022-11-02] MEDS ORDERED: HEPARIN SODIUM,PORCINE 5,000 UNIT/ML 1 ML VIAL SQ ONE (10:28)
[2022-11-02] MEDS ORDERED: NEOSTIGMINE 1 MG/ML 10 ML VIAL ONE (10:36)
[2022-11-02] MEDS ORDERED: LIDOCAINE 2% INJ 20 MG/ML (2 ML VIAL) ONE (10:36)
[2022-11-02] MEDS ORDERED: fentaNYL (PF) 50 MCG/ML 2 ML AMP ONE (10:36)
[2022-11-02] MEDS ORDERED: ROCURONIUM 10 MG/ML (5 ML VIAL) IV ONE (10:36)
[2022-11-02] MEDS ORDERED: PROPOFOL 10 MG/ML 20 ML VIAL IV ONE (10:36)
[2022-11-02] MEDS ORDERED: SUCCINYLCHOLINE CHLORIDE 200 MG/10 ML VIAL IV ONE (10:36)
[2022-11-02] MEDS ORDERED: GLYCOPYRROLATE 0.2 MG/ML 2 ML VIAL ONE (10:36)
[2022-11-02] MEDS ORDERED: SODIUM CHLORIDE 0.9% 50 ML with ceFAZolin 2,000 MG IV ONE ×2 (10:55)
[2022-11-02] MEDS ORDERED: BUPIVACAIN-EPI 0.25%-1:200,000 30 ML VIAL SQ ONE (11:01)
--- NOTE | 2022-11-02 11:27 | P.OP ---
Date of Procedure: 11/02/22 Preoperative Diagnosis: Cholecystitis Postoperative Diagnosis: Cholecystitis Procedure(s) Performed: Laparoscopic cholecystectomy Anesthesia: BHARGAV Surgeon: Erwin Watson Estimated Blood Loss (ml): 5 Pathology: other (Gallbladder) Condition: stable Disposition: PACU Description of Procedure: The patient was placed on the operating table. The patient received a general endotracheal tube anesthesia. The patients abdomen was prepped and draped in the usual sterile fashion. Through an infraumbilical stab incision, the fascia of the anterior abdominal wall was grasped with a pair of Kochers and then the Veress needle was placed in the peritoneal cavity. Position of the Veress needle was confirmed with positive drop test. The abdomen was then insufflated. After adequate insufflation, the 10 mm trocar was placed in the peritoneal cavity. Following this the laparoscope was placed in the peritoneal cavity. The patient was placed in the head-up, right side up position and then a 5 mm trocar was placed in the right lateral and right subcostal position under direct visualization. A 8 mm trocar was placed in the epigastric position. The gallbladder was grasped in the fundus and infundibulum. Traction on the gallbladder was placed in the lateral and the cephalad positions. The triangle of Calot was visualized.. The cystic duct was bluntly dissected until the union of the cystic duct and common bile duct was seen. A critical view of safety was achieved. The cystic duct was then divided and sealed with the Harmonic scissors. A PDS Endoloop was then placed throughout the cystic duct stump. The cystic artery divided and sealed with the Harmonic scissors. The gallbladder was then removed from the liver bed using Harmonic scissors. The gallbladder was then extracted through the epigastric port site. Operative field was checked for any bleeding spots and Harmonic scissors was used to coagulate the liver bed. The abdomen was irrigated. The trocars were removed. The skin was closed using interrupted 3-0 Vicryl suture. Dermabond dressing were applied. The patient tolerated the procedure well.
[2022-11-02] MEDS ORDERED: HYDROmorphone 1 MG/ML 1 ML SYRINGE IVP PRN (11:28)
[2022-11-02] MEDS ORDERED: ONDANSETRON 4 MG/2 ML VIAL IVP PRN (11:28)
[2022-11-02] MEDS: SODIUM CHLORIDE 0.9% 1,000 ML IV SCH (18:37)
[2022-11-02] MEDS: SCOPOLAMINE 1 MG/72 HR PATCH TRANSDERM SCH (18:44)
--- NOTE | 2022-11-02 23:44 | PN ---
PROGRESS NOTE SUBJECTIVE: This is an 82-year-old white male status post gallbladder surgery. His stomach is feeling better. We are going to advance his diet. He may be able to go home tomorrow. OBJECTIVE: CARDIOVASCULAR: S1, S2. LUNGS: Clear. GI: Soft. VITAL SIGNS: Stable. HEMATOLOGY: Negative for Homans. GI: Incisions are clean, dry, and intact. ASSESSMENT: Status post cholecystectomy, hiatal hernia, acute on chronic abdominal pain. History of coronary artery disease. Continue current treatments. Advance diet. We will discharge home in the morning. He is stable at this point. MMODL / IJN: [id number] /
--- NOTE | 2022-11-02 23:52 | PN ---
PROGRESS NOTE SUBJECTIVE: This is an 82-year-old white male with intractable nausea, vomiting, pre- cholecystectomy on 11/01/2022, status post EGD shows hiatal hernia. No signs of bleeding. He says his abdominal pain is better. He is going to be n.p.o. for surgery in the morning. OBJECTIVE: CARDIOVASCULAR: S1, S2. LUNGS: Clear. GI: Soft. PSYCH: Fair mood and affect. PLAN: Preop cholecystectomy for abnormal HIDA scan. EGD shows hiatal hernia, possibly fix in about 2 weeks. Continue home medicines. Possible discharge home after cholecystectomy tomorrow. Please see further orders. MMODL / IJN: [id number] /
[2022-11-03] MEDS: SODIUM CHLORIDE 0.9% 1,000 ML IV SCH (03:18)
[2022-11-03 03:22] VITALS: TEMP 97.9
[2022-11-03] MEDS: PANTOPRAZOLE 40 MG TABLET PO SCH (05:51)
[2022-11-03] MEDS: LEVOTHYROXINE 75 MCG TAB PO SCH (05:51)
[2022-11-03 07:26] VITALS: BP 157/79; PULSE 59; RESP 18
[2022-11-03] MEDS: ASPIRIN 81 MG PO SCH (07:56)
[2022-11-03] MEDS: LOSARTAN 50 MG TAB PO SCH (07:56)
[2022-11-03] MEDS: hydrALAZINE HCL 50 MG TAB PO SCH (07:56)
[2022-11-03] MEDS: amLODIPine 10 MG TAB PO SCH (07:56)
[2022-11-03] MEDS: MAGNESIUM OXIDE 400 MG TAB PO SCH (07:56)
[2022-11-03] MEDS: ATORVASTATIN 10 MG TAB PO SCH (07:56)
[2022-11-03] MEDS: allopurinoL 100 MG TAB PO SCH (07:56)
[2022-11-03] MEDS: FINASTERIDE 5 MG TAB PO SCH (07:56)
== END 2022-11-03 11:02 | disposition home or self-care (01) ==
LOC: EC 10:13 → 6NMEDSUR 17:11
PROVIDERS: ADMIT Family Medicine; ATTEND Family Medicine
DX: K81.1 Chronic cholecystitis (principal); K44.9 Diaphragmatic hernia without obstruction or gangrene; K29.50 Unspecified chronic gastritis without bleeding; E86.0 Dehydration; K31.A0 Gastric intestinal metaplasia, unspecified; Z86.73 Personal history of transient ischemic attack (TIA), and cerebral infarction without residual deficits; E07.9 Disorder of thyroid, unspecified; Z20.822 Contact with and (suspected) exposure to COVID-19; I10 Essential (primary) hypertension; E78.5 Hyperlipidemia, unspecified; M19.90 Unspecified osteoarthritis, unspecified site; I25.10 Atherosclerotic heart disease of native coronary artery without angina pectoris; Z79.82 Long term (current) use of aspirin; Z79.890 Hormone replacement therapy; Z79.899 Other long term (current) drug therapy
CPT/HCPCS: 96361 ×3; 96374; 96375; 99285; 36415; 93005; 88304; 88305; 80053 ×3; 80048; 83690; 84484; 85025 ×3; 85027; 85610; 85730; 81003; 87636; 71046; 74176; 78227; 43239; 47562; G0378 ×5; A9537; S0138 ×4; J0330; J0780; J1644; J1100; J2710; J2405 ×2; J0690; J2805; J3010; J1885; J2704 ×2; J2001

== ENCOUNTER → 2022-11-07 | Outpatient (CLI) | payer MEDICARE ==
[2022-11-07 15:00] VITALS: BP 134/84; PULSE 72; RESP 18; TEMP 98.2
--- NOTE | 2022-11-07 15:25 | P.PAINPG ---
PQRS Measure Charge Sheet Comment: A 82 yr old male w daughter at side with a history of severe and chronic LBP secondary to lumbar DDD and spondylosis with facet arthropathy without myelopathy presents today for evaluation s/p DIRK L5-S1. Pt states he experienced 95 % pain relief x 2 wks s/p procedure. Pain level is provoked at 2 /10 in inte nsity, constant, localized in the lumbar spine, dull/ achy/ sharp in character w shooting towards the RLE and BL feet. Pain is provoked by lifting. Pain is alleviated with PT x 6 wks in Sep 2022, chiropractic treatmentsx 6 visits as needed, heat, ice, medications, topicals, repositioning and rest. Interventional pain procedures completed include DIRK L5-S1 Patient is currently on Ibu, Tyl Patient denies any side effects of the medication(s), denies excessive drowsiness or sleepiness, denies suicidal ideation and reports that the current pain medication is helping to control the pain and improve activities of daily living. Patient denies any motor or sensory deficits. Patient denies any fever or night sweats, denies any change in the bowel movements or urination. Physical Examination: -Constitutional: Cooperative. Not in acute distress . - Neurologic: Cranial nerve II to XII intact. No focal neurological deficits. - Psychatric: Alert & oriented x 3. Matching mood & appropriate affect. Judgment and insight intact. - Musculoskeletal: Cervical spine: Muscle bulk/ tone/ strength in the bilateral upper extremities normal Vertebral body tenderness to palpation over Spurling test positive Distraction test positive Facet loading test positive TTP Thoracic spine Muscle bulk / tone/ strength in the bilateral paraspinal muscles normal Vertebral body tender to palpation over Facet loading test positive TTP Lumbar spine: Motor bulk/ tone/ strength lower extremities , thigh and legs : 5/5 Deep tendon reflexes : Normal Knee Jerk. Normal Ankle Jerk . Vertebral body tenderness to palpation over Lumbar Facet Loading Test positive Straight Leg Raise: positive at 30 degrees right side/ left side Gaenslen's Test positive Sacral spine : Severe tenderness over the Sacroiliac joint: right side / left side Range of motion: Flexion of the lumbar spine <60 degrees Range of motion: Extension of the lumbar spine <20 degrees Gaenslen's Test positive right side / left side Yonis test: positive right side / left side Thigh Thrust Test positive right side / left side Sacral Thrust Test positive right side / left side Assessment and plan: Chronic LBP secondary to lumbar DDD, spondylosis with facet arthropathy without myelopathy Will manage residual pain at home and may return to clinic on an as needed basis. All questions answered. I have spent less than 30 minutes on patient care today. Dr Loyola was available by phone for the evaluation of this patient. The time was used to review the medical records including relevant urine studies and Prescription history (MAPs), review of the available imaging, evaluation and examination of the patient, coordination of care with the medical staff and if applicable referring physicians, as well as creation of the medical record PQRS Narrative: Smoking Status Never smoker Hx Alcohol Use (MH) No Home Medications: Ambulatory Orders Aspirin [Adult Low Dose Aspirin EC] 81 mg PO DAILY 11/29/16 Magnesium Oxide [Magox 400] 400 mg PO DAILY 11/29/16 allopurinoL [Zyloprim] 100 mg PO DAILY 11/29/16 Finasteride [Proscar] 5 mg PO DAILY 10/17/22 Ibuprofen [Advil] 200 - 400 mg PO Q6HR PRN 10/17/22 Levothyroxine Sodium [Synthroid] 75 mcg PO DAILY 10/17/22 Lovastatin [Mevacor] 20 mg PO DAILY 10/17/22 hydrALAZINE HCL [Apresoline] 50 mg PO BID 10/17/22 tiZANidine HCL [Zanaflex] 2 mg PO AC-BID PRN 10/17/22 Losartan Potassium 100 mg PO BID 10/30/22 Ondansetron [Zofran] 4 mg PO QID 10/30/22 Scopolamine [Scopolamine 1 MG/72 HR patch] 1 patch TRANSDERM Q72H 10/30/22 amLODIPine [Norvasc] 10 mg PO DAILY 10/30/22 HYDROcodone/APAP 5-325MG [[place] 5-325] 1 tab PO Q6HR PRN 3 Days #12 tab 11/02/22 Pantoprazole [Protonix] 40 mg PO AC-BID 30 Days #60 tab 11/03/22 Controlled Substance Measures - Controlled Substance Measures Is patient prescribed a controlled substance at discharge?: No
== END ==
LOC: PNWHC3 13:15
PROVIDERS: ATTEND Specialist
DX: M51.36 Other intervertebral disc degeneration, lumbar region (principal); M47.816 Spondylosis without myelopathy or radiculopathy, lumbar region
CPT/HCPCS: 99211

== ENCOUNTER → 2022-11-08 | Outpatient (CLI) | payer MEDICARE ==
[2022-11-09 01:46] LABS: Basophils # (A) 0.05 X 10*3/uL (0.00-0.10); Basophils % (A) 0.6 %; Eosinophils # (A) 0.08 X 10*3/uL (0.04-0.35); Eosinophils % (A) 0.9 %; HGB 14.2 g/dL (13.0-17.0); Immature Grans, Automated 0.6 %; Lymphocytes # (A) 1.51 X 10*3/uL (0.90-5.00); Lymphocytes % (A) 17.8 %; MCH 28.2 pg (27.0-32.0); MCHC 30.9 g/dL (32.0-37.0); MCV 91.3 fL (80.0-97.0); Mean Platelet Volume 10.8 fL (9.5-12.2); Monocytes # (A) 0.39 X 10*3/uL (0.20-1.00); Monocytes % (A) 4.6 %; NRBC Per 100 WBC 0 /100 WBCS (0.0-0.0); Neutrophils # (A) 6.39 X 10*3/uL (1.80-7.70); Neutrophils % (A) 75.5 %; Platelet Count 253 X 10*3/uL (140-440); RBC 5.04 X 10*6/uL (4.40-5.60); RDW 14.5 % (11.5-14.5); WBC 8.47 X 10*3/uL (4.50-10.00)
== END | disposition home or self-care (01) ==
LOC: LABPAT 14:05
PROVIDERS: ATTEND Surgery
DX: Z01.812 Encounter for preprocedural laboratory examination (principal); I50.1 Left ventricular failure, unspecified; R94.31 Abnormal electrocardiogram [ECG] [EKG]
CPT/HCPCS: 85025; 93005

== ENCOUNTER 2022-11-19 08:38 | Day surgery (SDC) | payer MEDICARE ==
[~2022-11-19 08:38] MED LIST changes: +ACETAMINOPHEN TAB 500 MG TAB PO PRN; +DEXAMETHASONE SOD PHOSPHATE 4 MG/ML 1 ML VIAL IV ONE; +HEPARIN SODIUM,PORCINE/PF 5,000 UNIT/0.5 ML SYRINGE SQ PRN; +HYDROmorphone 0.5 MG/0.5 ML SYRINGE IVP PRN; -LACTATED RINGERS 1,000 ML IV SCH; +ONDANSETRON 4 MG/2 ML VIAL IVP ONE; +droPERidol 5 MG/2 ML VIAL IVP ONE
[2022-11-19] MEDS: LACTATED RINGERS 1,000 ML IV SCH (08:52)
[2022-11-19] MEDS ORDERED: KETOROLAC 15 MG/ML 1 ML VIAL ONE (10:18)
[2022-11-19] MEDS ORDERED: NEOSTIGMINE 1 MG/ML 10 ML VIAL ONE (10:18)
[2022-11-19] MEDS ORDERED: PROPOFOL 10 MG/ML 20 ML VIAL IV ONE (10:18)
[2022-11-19] MEDS ORDERED: MIDAZOLAM 2 MG/2 ML VIAL ONE (10:18)
[2022-11-19] MEDS ORDERED: GLYCOPYRROLATE 0.2 MG/ML 2 ML VIAL ONE (10:18)
[2022-11-19] MEDS ORDERED: fentaNYL (PF) 50 MCG/ML 2 ML AMP ONE (10:18)
[2022-11-19] MEDS ORDERED: ROCURONIUM 10 MG/ML (5 ML VIAL) IV ONE (10:18)
[2022-11-19] MEDS ORDERED: ePHEDrine 50 MG/ML 1 ML VIAL ONE (10:18)
[2022-11-19] MEDS ORDERED: LIDOCAINE 2% INJ 20 MG/ML (2 ML VIAL) ONE (10:18)
[2022-11-19] MEDS ORDERED: BUPIVACAINE (PF) 0.5% 30 ML VIAL SQ ONE ×3 (10:41→10:45)
[2022-11-19] MEDS ORDERED: LACTATED RINGERS 1,000 ML IV ONE (11:10)
[2022-11-19] MEDS ORDERED: HYDROmorphone 1 MG/ML 1 ML SYRINGE IVP PRN (11:25)
[2022-11-19] MEDS ORDERED: ONDANSETRON 4 MG/2 ML VIAL IVP PRN (11:25)
--- NOTE | 2022-11-19 11:34 | P.OP ---
Date of Procedure: 11/19/22 Preoperative Diagnosis: Paraesophageal hiatal hernia Postoperative Diagnosis: Large paraesophageal hiatal hernia with intrathoracic stomach containing approximate 50% of the stomach in the chest Procedure(s) Performed: Laparoscopic paraesophageal hiatal hernia repair with mesh Anesthesia: BHARGAV Surgeon: Erwin Watson Estimated Blood Loss (ml): 5 Pathology: none sent Condition: stable Disposition: PACU Description of Procedure: The patient was placed on the operating table in the supine position. The patient received general anesthesia. And was placed in dorsal lithotomy position. The patient was prepped and draped in the usual sterile fashion. The skin incision sites were anesthetized with 1% local Xylocaine. The skin was incised in the left periumbilical area and then using a blade less 5 mm trocar under direct visualization panel cavity was entered. After adequate insufflation the laparoscope was then placed into the peritoneal cavity. Next a 5 mm trochars placed in the right epigastric position. Another 5 millimeter trocar the right lateral position. Another 5 millimeter trocar in the left lateral position a 5 mm trocar is placed in the left epigastric position. And then the initial 5 mm trocar was exchanged for a 10 mm trocar. The left lateral lobe liver was retracted. The hernia was seen. The paraesophageal hiatal hernia was quite large. The hernia sac was then dissected.. The stomach and hernia sac were then reduced into the peritoneal Cavity. Approximately 4 cm of esophagus was placed into the. Cavity after dissection of the hiatal hernia. The crural defect was then performed using 2-0 Ethibond suture in the timeout device.. A piece of [place] bio a mesh was placed over top the repair and secured with 2 Ethibond suture in the timeout device. There was no injury to the stomach or liver seen. The trochars withdrawn. The skin was closed interrupted 3-0 Monocryl suture. Dermabond was applied. Patient top she will sent to recovery room stable condition.
[2022-11-19 15:29] VITALS: RESP 17
[2022-11-19] MEDS: D5-0.45% NACL WITH KCL 20MEQ/L 1,000 ML IV SCH ×2 (17:02→22:18)
[2022-11-19] MEDS: LOSARTAN 50 MG TAB PO SCH (20:44)
[2022-11-19] MEDS: hydrALAZINE HCL 50 MG TAB PO SCH (20:45)
[2022-11-19] MEDS: SUCRALFATE 1 GM TAB PO SCH (20:45)
--- NOTE | 2022-11-20 01:08 | CONS ---
CONSULTATION HISTORY OF PRESENT ILLNESS: A white male, status post hiatal hernia surgery. He feels much better. He is able to take clear liquids in tonight. See him back to his normal self. REVIEW OF SYSTEMS: A 14-point review of systems otherwise negative. PHYSICAL EXAMINATION: VITAL SIGNS: O2 is 94 on room air, blood pressure 150s/80s, temp 97.6, pulse 77, and respiratory rate 16 to 18. CARDIOVASCULAR: S1, S2. LUNGS: Clear. GI: Soft. HEMATOLOGY: Negative for Homans. PSYCH: Fair mood and affect. PLAN: Continue current home medicines. Home medications status post hiatal hernia repair. Standard postop care. Prognosis guarded. MMODL / IJN: [id number] /
[2022-11-20] MEDS: D5-0.45% NACL WITH KCL 20MEQ/L 1,000 ML IV SCH (06:09)
[2022-11-20] MEDS: LACTATED RINGERS 1,000 ML IV SCH (06:10)
[2022-11-20] MEDS ORDERED: LEVOTHYROXINE 75 MCG TAB PO SCH (06:30)
[2022-11-20] MEDS ORDERED: PANTOPRAZOLE 40 MG TABLET PO SCH (07:30)
[2022-11-20] MEDS ORDERED: HYDROcodone/APAP 5-325MG 1 EACH TAB PO PRN (07:49)
[2022-11-20] MEDS: SUCRALFATE 1 GM TAB PO SCH (08:28)
[2022-11-20] MEDS: LOSARTAN 50 MG TAB PO SCH (08:28)
[2022-11-20] MEDS: hydrALAZINE HCL 50 MG TAB PO SCH (08:31)
[2022-11-20 08:38] VITALS: BP 170/91; PULSE 66; TEMP 97.6
[2022-11-20] MEDS ORDERED: FINASTERIDE 5 MG TAB PO SCH (09:00)
[2022-11-20] MEDS ORDERED: allopurinoL 100 MG TAB PO SCH (09:00)
[2022-11-20] MEDS ORDERED: ENOXAPARIN 40 MG/0.4 ML SYRINGE SQ SCH (09:00)
[2022-11-20] MEDS ORDERED: amLODIPine 10 MG TAB PO SCH (09:00)
[2022-11-20] MEDS ORDERED: ASPIRIN 81 MG PO SCH (09:00)
[2022-11-20] MEDS ORDERED: ATORVASTATIN 10 MG TAB PO SCH (09:00)
--- NOTE | 2022-11-20 12:44 | P.DS ---
Providers Expected date of discharge: 11/20/22 Attending physician: Erwin Watson Consults: 11/19/22 11:25 Consult Physician Routine Consulting Provider: David Ortega Consult Reason/Comments: Medical management Do you want consulting provider notified?: Yes Primary care physician: David Ortega Hospital Course: Discharge diagnosis 1. Large paraesophageal hiatal hernia with intrathoracic stomach containing approximate 50% of the stomach in the chest Hospital course This is a 82-year-old male with a large paraesophageal hiatal hernia with intrathoracic stomach. He is status post laparoscopic paraesophageal hiatal hernia repair with mesh. He tolerated surgery well. His pain is controlled. He is tolerating diet. He has been up and ambulating. He is afebrile. He is having flatus. He is stable for discharge. Please refer to chart for further details. Physician Margin Clerk note has been reviewed by physician. Signing provider agrees with the documented findings, assessment, and plan of care. Patient Condition at Discharge: Stable Plan - Discharge Summary Discharge Rx Participant: No New Discharge Prescriptions: New oxyCODONE HCL [OxyIR] 5 mg PO Q6H PRN 2 Days #5 tab PRN Reason: Pain Acetaminophen Tab [Tylenol Tab] 650 mg PO Q4H PRN #30 tablet PRN Reason: Pain Continue allopurinoL [Zyloprim] 100 mg PO DAILY Aspirin [Adult Low Dose Aspirin EC] 81 mg PO DAILY Levothyroxine Sodium [Synthroid] 75 mcg PO DAILY amLODIPine [Norvasc] 10 mg PO DAILY Losartan Potassium 100 mg PO BID Pantoprazole [Protonix] 40 mg PO AC-BID 30 Days #60 tab Lovastatin [Mevacor] 20 mg PO DAILY hydrALAZINE HCL [Apresoline] 50 mg PO BID Finasteride [Proscar] 5 mg PO DAILY Sucralfate [Carafate] 1 gm PO TID Ketorolac [Toradol] 1 tab PO DIRECTED Discharge Medication List Aspirin [Adult Low Dose Aspirin EC] 81 mg PO DAILY 11/29/16 [History] allopurinoL [Zyloprim] 100 mg PO DAILY 11/29/16 [History] Finasteride [Proscar] 5 mg PO DAILY 10/17/22 [History] Levothyroxine Sodium [Synthroid] 75 mcg PO DAILY 10/17/22 [History] Lovastatin [Mevacor] 20 mg PO DAILY 10/17/22 [History] hydrALAZINE HCL [Apresoline] 50 mg PO BID 10/17/22 [History] Losartan Potassium 100 mg PO BID 10/30/22 [History] amLODIPine [Norvasc] 10 mg PO DAILY 10/30/22 [History] Pantoprazole [Protonix] 40 mg PO AC-BID 30 Days #60 tab 11/03/22 [Rx] Ketorolac [Toradol] 1 tab PO DIRECTED 11/14/22 [History] Sucralfate [Carafate] 1 gm PO TID 11/14/22 [History] Acetaminophen Tab [Tylenol Tab] 650 mg PO Q4H PRN #30 tablet 11/20/22 [Rx] oxyCODONE HCL [OxyIR] 5 mg PO Q6H PRN 2 Days #5 tab 11/20/22 [Rx] Follow up Appointment(s)/Referral(s): Erwin Watson MD [STAFF PHYSICIAN] - 1 Week Patient Instructions/Handouts: Laparoscopic Hiatal Hernia Repair (DC) Activity/Diet/Wound Care/Special Instructions: No driving while taking OxyIR No lifting over 10 pounds Shower daily. No soaking or tub baths for 2 weeks Very light activity until you are reevaluated at your follow up appointment with your surgeon Continue Full liquid diet for 2 weeks Discharge Disposition: HOME SELF-CARE
[2022-11-20 13:15] VITALS: BMI 24.0
== END 2022-11-20 13:57 | disposition home or self-care (01) ==
LOC: OR 08:38 → 6NMEDSUR 11:21 → OR 11-20 13:57
PROVIDERS: ATTEND Surgery
DX: K44.9 Diaphragmatic hernia without obstruction or gangrene (principal); I10 Essential (primary) hypertension; E07.9 Disorder of thyroid, unspecified; Z90.49 Acquired absence of other specified parts of digestive tract; Z79.899 Other long term (current) drug therapy; Z79.890 Hormone replacement therapy
CPT/HCPCS: 43282; C1781; S0138; J1100; J0690 ×2; J2405; J1650; J1170; J1644

== ENCOUNTER → 2022-11-30 | Outpatient (CLI) | payer MEDICARE ==
--- NOTE | 2022-11-30 12:42 | MR ---
EXAMINATION TYPE: MR lumbar spine wo con DATE OF EXAM: 11/30/2022 COMPARISON: Outside lumbar spine x-ray November 13, 2022 HISTORY: Low back pain into bilateral buttocks TECHNIQUE: Multiplanar, multisequence imaging of the lumbar spine is performed without IV contrast. FINDINGS: Sagittal images of the lumbar spine show vertebral body heights to appear satisfactory. The re is grade 1 retrolisthesis L1 on L2, L2 on L3, and L3 on L4. Multilevel disc desiccation. There is mild disc space narrowing L4-L5 level. The conus medullaris is normal in position and signal ending s uperior L1 level. The bone marrow signal intensity is within normal limits. [id number]-cl-[id number] multile abbi anterior spurring is seen. Axial images show T12-L1 level to appear within normal limits. Axial images at L1-L2 level show spondylolisthesis and mild broad disc bulge minimally effacing anter ior thecal sac. Axial images at L2-L3 level show moderate broad disc bulge effacing the anterior thecal sac. There is iwcn-ti-wjepwrba facet arthropathy and ligament flavum hypertrophy effacing the posterior lateral th ecal sac on axial image 22. Mild right greater than left bilateral anterior inferior neural foraminal narrowing is seen. Axial images at L3-L4 level shows spondylosis with mild broad-based posterior disc protrusion minimal ly effacing anterior thecal sac. There is mild/moderate facet arthropathy and ligamentum flavum hyper trophy effacing left posterolateral thecal sac. There is asymmetric mild to moderate left-sided neura l foraminal narrowing due to foraminal disc protrusion component. Axial images at L4-L5 level shows severe broad disc bulge effacing the anterior thecal sac. There is moderate to advanced facet arthropathy effacing the posterior lateral thecal sac. Most prominent spin al canal stenosis at this level axial image 10. There is moderate right greater than left bilateral n eural foraminal narrowing. Encroachment on the right L4 nerve is felt present due to foraminal/extraf oraminal disc protrusion component on axial image 10 and sagittal image 15. Axial images at L5-S1 level shows mild facet arthropathy bilaterally. Spinal canal is preserved. Bila teral neural foramina are patent. Paraspinal muscle bulk is maintained. IMPRESSION: Multilevel spondylolisthesis and degenerative change in the lumbar spine as detailed eliseo melara
== END | disposition home or self-care (01) ==
LOC: RADMRIMAIN 10:33
PROVIDERS: ATTEND Nurse Practitioner Family
DX: M43.16 Spondylolisthesis, lumbar region (principal); M47.817 Spondylosis without myelopathy or radiculopathy, lumbosacral region
CPT/HCPCS: 72148

== ENCOUNTER → 2023-01-04 | Outpatient (CLI) | payer MEDICARE ==
--- NOTE | 2023-01-04 09:56 | FL ---
EXAMINATION TYPE: FL UGI air w esophagus DATE OF EXAM: 01/04/2023 9:17 AM CLINICAL INDICATION:Male, 82 years old with history of R13.10 DYSPHAGIA, UNSPECIFIED; COMPARISON: 11/17/2022 TECHNIQUE: The procedure was explained and patient history elicited. All patient questions were ans wered prior to start of procedure. A spinning frame tender radiograph of the abdomen was also reviewed. Multiple flu oroscopic spot images of the esophagus, stomach and duodenum were obtained following ingestion of liq uid barium and EZ-gas crystals. Fluoroscopic time: 33 seconds Fluoroscopic images: None Radiographs taken: 1.7 DAP: 1746.21 mGym2 FINDINGS: There is esophageal dysmotility with tertiary contractions. Delayed transit of contrast through the g astroesophageal junction into the stomach. There is outpouching of the distal esophagus which could b e post hernia repair changes versus epiphrenic diverticulum. 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
== END | disposition home or self-care (01) ==
LOC: RADUSWWP 08:38
PROVIDERS: ATTEND Surgery
DX: R13.10 Dysphagia, unspecified (principal); K22.4 Dyskinesia of esophagus
CPT/HCPCS: 74246

== ENCOUNTER → 2023-02-06 | Outpatient (CLI) | payer MEDICARE ==
[2023-02-06 11:19] VITALS: BP 151/77; PULSE 58; RESP 16; TEMP 97.8
--- NOTE | 2023-02-06 13:12 | P.PAINPG ---
PQRS Measure Charge Sheet Comment: A 82 yr old male with a history of severe and chronic LBP x > 10 yrs secondary to lumbar DDD and spondylosis with facet arthropathy without myelopathy presents today for evaluation. Pain level is provoked at 10/10 in intensity, constant, localized in the lumbar spine, sharp in character w shooting towards the BLE and BL feet. Pain is provoked by lifting. Pain is alleviated with PT x 6-8 wks in Dec 2022, chiropractic treatments approx 3 mo ago x 6 visits as needed, use of a cane for ambulatory assistance, heat, ice, medications, topicals, repositioning and rest. Oswestry axial pain score of 33. Interventional pain procedures completed include DIRK L5-S1 Patient is currently on Ibu, Tyl, Tramadol, Icy-Hot Patient denies any side effects of the medication(s), denies excessive drowsiness or sleepiness, denies suicidal ideation and reports that the current pain medication is helping to control the pain and improve activities of daily living. Patient denies any motor or sensory deficits. Patient denies any fever or night sweats, denies any change in the bowel movements or urination. Physical Examination: -Constitutional: Cooperative. Not in acute distress . - Neurologic: Cranial nerve II to XII intact. No focal neurological deficits. - Psychatric: Alert & oriented x 3. Matching mood & appropriate affect. Judgment and insight intact. - Musculoskeletal: Cervical spine: Muscle bulk/ tone/ strength in the bilateral upper extremities normal Vertebral body tenderness to palpation over Spurling test positive Distraction test positive Facet loading test positive TTP Thoracic spine Muscle bulk / tone/ strength in the bilateral paraspinal muscles normal Vertebral body tender to palpation over Facet loading test positive TTP Lumbar spine: Motor bulk/ tone/ strength lower extremities , thigh and legs : 5/5 Deep tendon reflexes : Normal Knee Jerk. Normal Ankle Jerk . Vertebral body tenderness to palpation over L5 Bell test positive Lumbar Facet Loading Test positive Straight Leg Raise: positive at 30 degrees right side/ left side Gaenslen's Test positive Sacral spine : Severe tenderness over the Sacroiliac joint: right side / left side Range of motion: Flexion of the lumbar spine <60 degrees Range of motion: Extension of the lumbar spine <20 degrees Gaenslen's Test positive right side / left side Yonis test: positive right side / left side Thigh Thrust Test positive right side / left side Sacral Thrust Test positive right side / left side Assessment and plan: Chronic LBP secondary to lumbar DDD, spondylosis with facet arthropathy without myelopathy Recommendation of DIRK L5-S1 #2. May need a series f injections for optimal pain relief. Risks, benefits of procedure discussed and pt verbalized understanding. Protocol for discontinuation/ continuation of medications surrounding procedure discussed. All questions answered. I have spent less than 30 minutes on patient care today. Dr Loyola was available by phone for the evaluation of this patient. The time was used to review the medical records including relevant urine studies and Prescription history (MAPs), review of the available imaging, evaluation and examination of the patient, coordination of care with the medical staff and if applicable referring physicians, as well as creation of the medical record PQRS Narrative: Smoking Status Never smoker Hx Alcohol Use (MH) No Home Medications: Ambulatory Orders Aspirin [Adult Low Dose Aspirin EC] 81 mg PO DAILY 11/29/16 allopurinoL [Zyloprim] 100 mg PO DAILY 11/29/16 Finasteride [Proscar] 5 mg PO DAILY 10/17/22 Levothyroxine Sodium [Synthroid] 75 mcg PO DAILY 10/17/22 Lovastatin [Mevacor] 20 mg PO DAILY 10/17/22 hydrALAZINE HCL [Apresoline] 50 mg PO BID 10/17/22 Losartan Potassium 100 mg PO BID 10/30/22 amLODIPine [Norvasc] 10 mg PO DAILY 10/30/22 Pantoprazole [Protonix] 40 mg PO AC-BID 30 Days #60 tab 11/03/22 Ketorolac [Toradol] 1 tab PO DIRECTED 11/14/22 Sucralfate [Carafate] 1 gm PO TID 11/14/22 Acetaminophen Tab [Tylenol Tab] 650 mg PO Q4H PRN #30 tablet 11/20/22 oxyCODONE HCL [OxyIR] 5 mg PO Q6H PRN 2 Days #5 tab 11/20/22 Controlled Substance Measures - Controlled Substance Measures Is patient prescribed a controlled substance at discharge?: No
== END ==
LOC: PNWHC3 10:12
PROVIDERS: ATTEND Specialist
DX: M51.36 Other intervertebral disc degeneration, lumbar region (principal); M47.816 Spondylosis without myelopathy or radiculopathy, lumbar region; G89.29 Other chronic pain; Z79.82 Long term (current) use of aspirin
CPT/HCPCS: 99211

== ENCOUNTER → 2023-02-21 | Day surgery (SDC) | payer MEDICARE ==
[~2023-02-21] MED LIST changes: -ACETAMINOPHEN TAB 500 MG TAB PO PRN; -DEXAMETHASONE SOD PHOSPHATE 4 MG/ML 1 ML VIAL IV ONE; -HEPARIN SODIUM,PORCINE/PF 5,000 UNIT/0.5 ML SYRINGE SQ PRN; -HYDROmorphone 0.5 MG/0.5 ML SYRINGE IVP PRN; +IOPAMIDOL M200 10 ML VIAL ONE; +LACTATED RINGERS 1,000 ML IV SCH; -LIDOCAINE 1% (10MG/ML) FOR IV START INTRADERMA PRN; -ONDANSETRON 4 MG/2 ML VIAL IVP ONE; +ROPIVACAINE 5MG/ML 20ML VIAL ONE; +TRIAMCINOLONE ACETONIDE 40 MG/ML 1 ML VIAL ONE; -droPERidol 5 MG/2 ML VIAL IVP ONE
[2023-02-21 07:20] VITALS: TEMP 97
--- NOTE | 2023-02-21 08:14 | P.PCN ---
Description of Procedure: PREOPERATIVE DIAGNOSIS: 1-Lumbar radiculopathy 2- Lumber Degenerative Disc Diseases. POSTOPERATIVE DIAGNOSIS: 1-Lumbar radiculopathy. 2-Lumbar Degenerative Disc Diseases PROCEDURE 1. Lumbar epidural steroid injection under fluoroscopic guidance at the L5-S1 level. 2. Lumbar epidurogram. ANESTHESIA: Local with 1% lidocaine EBL: Minimal PROCEDURE INDICATION: The patient with low back pain and radiculitis symptoms unresponsive to conservative treatment. Fluoroscopy was used to optimize visualization of the needle placement and to maximize safety. PROCEDURE DESCRIPTION / TECHNIQUE: The patient was seen and identified in the preoperative area. Risks, benefits, complications including but not limited to infections ,bleeding ,allergic reaction to the medications ,nerve damage and not complete pain relief , and alternatives were discussed with the patient. The patient agreed to proceed with the procedure and signed the consent. IV was started, and vital signs were stable. Patient was taken to the OR and time out was completed. The patient was placed in the prone position on procedure table and a pillow was placed under the abdomen to reduce lumbar lordosis. The lumbosacral area was prepped and draped in the usual sterile fashion with ChloraPrep.Patient was closely monitored during the procedure. Conscious sedation was used during the procedure to decrease patients anxiety. Vital signs were monitered during the entire procedure. Using anterior-posterior fluoroscopy, the L5-S1 interlaminar space was identified and the skin over this site was marked and then infiltrated with 1% lidocaine subcutaneously. Subsequently, a 20-gauge Tuohy epidural needle was inserted and advanced toward the epidural space using the Loss of resistance to air technique and guided by AP and lateral fluoroscopy. The correct needle position in the epidural space was verified with the injection of 1 mL of the water soluble contrast dye Omnipaque 180 contrast and observing an excellent epidurogram with the epidural spread of the dye, after negative aspiration for blood and CSF and in the absence of paresthesias. Again after negative aspiration, a 8 ml mixture containing 40 mg of Kenalog and 5 ml of preservative free Normal Saline, and 2 ml of preservative free Ropivacaine 0.5% solution was injected and a washout of epidurogram was seen. Needle was withdrawn intact, skin was cleansed, and bandages were applied. patient tolerated procedure well and was transferred to PACU in stable condition.A copy of the needle placement picture was saved to the fluoroscopy machine. COMPLICATIONS: None
[2023-02-21 08:29] VITALS: BP 163/79; PULSE 60; RESP 16
--- NOTE | 2023-02-21 08:55 | FL ---
Intraoperative/procedural fluoroscopic services were provided for lumbar epidural injection. Total fl uoroscopy time is 7.0 seconds with a total of 3 submitted images to PACS. Total DAP [id number] [employer]. P lease see the operative note for further details.
== END ==
LOC: ORPAIN 06:47
PROVIDERS: ATTEND Anesthesiology
DX: M51.16 Intervertebral disc disorders with radiculopathy, lumbar region (principal); I10 Essential (primary) hypertension; Z79.82 Long term (current) use of aspirin
CPT/HCPCS: 62323; J3301; Q9966; J2795